=== PATIENT | male | born 1935 | race Caucasian/White ===

== ENCOUNTER 2016-11-26 16:58 | Inpatient (IN) | payer MEDICARE ==
[~2016-11-26] VITALS: Ht 180.3 cm; Wt 81.6 kg
[~2016-11-26 16:58] MED LIST: AUGMENTIN 500-11 TA1 PO; BAYER CHEWABLE81 MG PO; CLINORIL150 MG PO; FLOMAX0.4 MG PO; GLUCOTROL 5 MG T5 MG PO; HYDROCODON-ACE1 EAC7 PO; K-DUR20 MEQ PO; LASIX40 MG PO; LISINOPRIL2.5 MG PO; NEURONTIN 300300 MG PO; NEURONTIN600 MG PO; PROSCAR5 MG PO; ZYLOPRIM300 MG PO
[2016-11-26 18:45] LABS: APPEARANCE HAZY (CLEAR); BILIRUBIN NEGATIVE (NEGATIVE); COLOR YELLOW (YELLOW); GLUCOSE NEGATIVE (NEGATIVE); KETONE SMALL mg/dL (NEGATIVE); LEUKOCYTE ESTERASE 1+ (NEGATIVE); NITRITE NEGATIVE (NEGATIVE); PROTEIN 2+ mg/dL (NEGATIVE); SPECIFIC GRAVITY 1.015 (1.005-1.020); UROBILINOGEN NORMAL (NORMAL)
[2016-11-26 18:46] LABS: BACTERIA MANY /hpf (NONE SEEN); EPITHELIAL CELLS 0-5 /hpf (0-5); RED CELLS - URINE 0-5 /hpf (0-5); WHITE CELLS - URINE 25-50 /hpf (0-5)
[2016-11-26 19:23] LABS: BASOPHILS 0.1 % (0-2); EOSINOPHILS 0 % (0-7); HEMATOCRIT 39.6 % (42.0-54.0); HEMOGLOBIN 13.5 g/dL (13.5-17.5); IMMATURE GRANULOCYTES 0.2 % (0-5); LYMPHOCYTES 7.4 % (15-50); MCH 31.5 pg (26.0-34.0); MCHC 34.1 g/dL (31.0-37.0); MCV 92.5 fL (80.0-100.0); MEAN PLATELET VOLUME 10.4 fL (7.4-10.4); MONOCYTES 6.8 % (2-11); NEUTROPHILS 85.5 % (40-80); PLATELET COUNT 260 10x3/uL (130-400); RBC 4.28 10x6/uL (4.20-6.10); RDW 13.5 % (11.5-14.5); WBC 13.6 10x3/uL (4.8-10.8)
[2016-11-26 19:50] LABS: ALBUMIN 2.8 g/dL (3.4-5.0); ALKALINE PHOSPHATASE 109 U/L (46-116); ALT (SGPT) 25 U/L (10-68); BILIRUBIN - TOTAL 1.25 mg/dL (0.2-1.3); CALC OSMOLALITY 284 mosm/kg (275-300); CALCIUM 8.3 mg/dL (8.5-10.1); CARBON DIOXIDE 24.5 mmol/L (21.0-32.0); CHLORIDE - SERUM 108 mmol/L (98-107); CREATININE - SERUM 1.4 mg/dL (0.6-1.3); POTASSIUM - SERUM 4.1 mmol/L (3.5-5.1); SODIUM 140 mmol/L (136-145); UREA NITROGEN 24 mg/dL (7-18); eGFR NON AFRICAN AMERICAN 51 mL/min (90-120)
[2016-11-26 19:54] LABS: GLUCOSE 132 mg/dL (74-106)
[2016-11-26 20:00] VITALS: BP 132/79
[2016-11-26 20:07] LABS: CREATINE KINASE 715 UL (21-232)
[2016-11-26 20:17] LABS: CKMB 8.8 U/L (0.0-3.6)
[2016-11-26 23:07] VITALS: BP 132/79; BMI 25.1
--- NOTE | 2016-11-26 23:19 | NUR ---
PT ARRIVED ON UNIT AT 2142 VIA STRETCHER ESCORTED BY ER STAFF. POSITIONED IN BED FOR COMFORT. PT C/O SCOOTED AROUND ON GARAGE FLOOR FOR 24 HOURS AFTER FALL. PT HAS STAGE 2 DECUBITIS ULCER ON COCCYX, BRIGHT RED WITH SOME BLEEDING. APPLIED MAXIMINO'S PASTE ON COCCYX AND COVERED WITH A MEPILEX HEART UNTIL HE CAN BE SEEN BY WOUND CARE NURSE...CONSULT PLACED IN COMPUTER. IV IN LEFT AC WITH NS INFUSING AT 100 ML / HR. GAVE MORPHINE 2 MG IVP PER PT REQUEST FOR PAIN ON BOTTOM. ADMISSION ASSESSMENT AND HISTORY COMPLETE. MED REC COMPLETE. WILL MONITOR CLOSELY FOR NEEDS. BED ALARM IN USE AND PT INSTRUCTED TO ASK FOR ASSISTANCE BEFORE EXITING BED.
[2016-11-27] VITALS: BP 139/55
--- NOTE | 2016-11-27 00:42 | NUR ---
ASSISTED PT UP TO GO TO RESTROOM. GRIPPER SOCKS APPLIED TO BLE. PT VERY WEAK AND REQUIRES ASSISTANCE IN BALANING.
[2016-11-27 04:00] VITALS: BP 134/78
[2016-11-27 06:04] LABS: CALC OSMOLALITY 294 mosm/kg (275-300); CALCIUM 8.6 mg/dL (8.5-10.1); CARBON DIOXIDE 25.5 mmol/L (21.0-32.0); CHLORIDE - SERUM 111 mmol/L (98-107); CREATINE KINASE 733 UL (21-232); CREATININE - SERUM 1.4 mg/dL (0.6-1.3); GLUCOSE 146 mg/dL (74-106); SODIUM 144 mmol/L (136-145); UREA NITROGEN 26 mg/dL (7-18); eGFR NON AFRICAN AMERICAN 51 mL/min (90-120)
[2016-11-27 06:07] LABS: CKMB 7.9 U/L (0.0-3.6)
--- NOTE | 2016-11-27 06:41 | NUR ---
PT RESTED WELL OVERNIGHT. HE REQUIRES ASSISTANCE GOING TO RESTROOM, HE IS VERY WEAK AND UNSTEADY ON HIS FEET. BED ALARM IN USE FOR SAFETY.
[2016-11-27 08:05] VITALS: BP 138/83
--- NOTE | 2016-11-27 08:26 | NUR ---
PT SITTING ON SIDE OF BED EATING BREAKFAST. SOME SOB NOTED. ON O2 AT 2L VIA NASAL CANULA. RHONCHI NOTED ON RIGHT MIDDLE LOBE. LEFT FOREARM PERIPHERAL IV INFUSING NS AT 10ML/HR. PT DENIES OTHER NEEDS AT THIS TIME.
--- NOTE | 2016-11-27 12:05 | NUR ---
Patient Name: RAMANDEEP STROUD Admission Status: ER Accout number: [id number] Admission Date: 11-26-2016 : 1934 Admission Diagnosis: Attending: ALVIN CORDERO Current LOS: 1 Anticipated DC Date: 11-30-2016 Planned Disposition: Home Primary Insurance: [employer] ADV Discharge Planning Comments: CM MET WITH PATIENT REGARDING D/C NEEDS AND PLANS. PATIENT STATED HE LIVES ALONE AND HIS DAUGHTER WILL DRIVE HIM HOME AT DISCHARGE. PATIENT HAS 4 STEPS W/RAILS TO ENTER HOME AND NO STAIRS INSIDE. PATIENT STATED HE IS INDEPENDENT WITH HIS CARE AND HAS A WALKER, WHEELCHAIR, SHOWER CHAIR (BUILT IN), CANE, AND GLUCOMETER (DOES NOT CHECK.) PATIENT SEES AN LIVESTOCK AGENT FROM [place] AT [place] WEEKLY IN HIS HOME. PATIENT STATED HE USES [facility] [address] FOR HIS PHARMACY. CM HAS CALLED PATIENTS DAUGHTER (HAYLEY) REGARDING D/C NEEDS AND PLANS. PCP SEES LIVESTOCK AGENT FROM [place] (DOES NOT KNOW NAME) [facility] [address] [phone] HAYLEY (DAUGHTER) [phone] [place] Operator: Sheila Shin Is the patient Alert and Oriented? Yes 0 * How many steps to enter\exit or inside your home? 4 RAILS 0 * PCP [facility] COMES TO HOME ONCE A WEEK 0 * Pharmacy [facility] [address] 0 * Preadmission Environment Home Alone 0 * ADLs Independent 0 * Equipment Cane Glucometer Walker Wheelchair 0 * List name and contact numbers for known caregivers / representatives who currently or will assist patient after discharge: HAYLEY (DAUGHTER) [phone] * Community resources currently utilized [place] [facility] 0 * Please name any agencies selected above. [facility]IVE[facility]OCK AGENT COMES IN HIS HOME ONCE A WEEK 0 * Additional services required to return to the preadmission environment? Yes 0 * Can the patient safely return to the preadmission environment? Yes 0 * Has this patient been hospitalized within the prior 30 days at any hospital? No 0 Grand Total: 0
[2016-11-27 12:28] VITALS: BP 118/46
--- NOTE | 2016-11-27 12:30 | NUR ---
PATIENT'S HEART RATE IS BRADYCARDIC AT 40. PT DOES NOT APPEAR SYMPTOMATIC. WOKE HIM UP TO SEE IF HE WAS NOT FEELING WELL. STATED THAT HE FEELS FINE. WILL CONTINUE TO MONITOR.
[2016-11-27 13:46] VITALS: Ht 180.3 cm; Wt 81.6 kg
--- NOTE | 2016-11-27 14:57 | NUR ---
AMBULATED PT TO BATHROOM. VERY UNSTEADY GAIT. UNABLE TO PROVIDE A URINE SAMPLE AT THIS TIME. WILL TRY AGAIN LATER. ASSISTED PT BACK IN BED. PULLED UP IN BED AND REPOSITONED X 2 ASSIST. BED ALARM TURNED ON. BED LOW POSITION. CALL LIGHT IN REACH. PT DENIES OTHER NEEDS AT THIS TIME.
[2016-11-27 16:00] VITALS: BP 156/86
--- NOTE | 2016-11-27 16:28 | NUR ---
PT NEEDED ASSISTANCE TO BATHROOM. REFUSED FOR WOMEN NURSES OR BLOCKLAYER TO HELP HIM. HE WANTED A MALE TO PROVIDE HIM HELP. EXPLAINED TO PT THAT THERE WHERE NO MEN AVAILABLE TO HELP HIM AT THIS TIME. PT STILL INSISTED TO GO TO BATHROOM BY HIMSELF WITHOUT HELP OF NURSE OR BLOCKLAYER. HAD PT SIGN FORM OF RESPONSIBILITY DUE TO HIS UNSTEADY GAIT.
--- NOTE | 2016-11-27 18:40 | NUR ---
PT OUTSIDE OF ROOM. HE WANTED TO SEE HIS DOCTOR BECAUSE HE WANT TO GO HOME. ASSISTED HIM BACK IN ROOM. EXPLAINED TO HIM THAT HIS DOCTOR WILL SEE HIM IN THE MORNING. ENCOURAGED HIM TO STAY IN BED TO PREVENT HIM FROM FALLING. HIS GAIT IS VERY UNSTEADY.
--- NOTE | 2016-11-27 19:30 | NUR ---
PATIENT RESTING IN BED AND DENIES NEEDS AT THIS TIME. BED IN LOWEST POSITION AND CALL LIGHT WITHIN REACH. ENCOURAGED THE PATIENT TO CALL IF HE HAS NEEDS.
[2016-11-27 20:00] VITALS: BP 134/50
--- NOTE | 2016-11-27 22:33 | NUR ---
PAGED DR. CORDERO IN REGARDS TO PATIENT'S INCREASING AGITATION AND COMBATIVE BEHAVIOR.
[2016-11-28] VITALS: BP 101/56
--- NOTE | 2016-11-28 01:10 | NUR ---
PATIENT IS SITTING ON THE SIDE OF THE BED AND REFUSING TO GET BACK INTO BED. I ALSO OFFERED THE PATIENT THE OPTION OF SITTING IN THE RECLINER. I HAVE EXPLAINED TO THE PATIENT THAT SITTING ON THE SIDE OF THE BED IS UNSAFE AND IT INCREASES HIS RISK OF FALLING. I HAVE TRIED TO TALK TO THE PATIENT ABOUT GETTING BACK IN THE BED OR SITTING IN THE CHAIR. HE CONTINUES TO REFUSE BOTH OPTIONS AND INSISTS ON SITTING ON THE SIDE OF THE BED.
--- NOTE | 2016-11-28 03:30 | NUR ---
PATIENT IS STILL UNCOOPERATIVE AT THIS TIME AND REFUSED TO HAVE BLOOD DRAWN
[2016-11-28 04:09] VITALS: BP 119/59
--- NOTE | 2016-11-28 07:30 | NUR ---
REPORT RECEIVED FROM KNEE BOLTER NURSE. WALKING ROUNDS PREFORMED. ASSESSMENT COMPLETED, SEE FLOW SHEET. PT SITTING UP IN BED. BED ALARM IN PLACE AND ARMED. CALL LIGHT AT SIDE. PT EXPRESSESS DESIRE TO GO HOME. PER REPORTS PT UP MULTIPLE TIMES THROUGHOUT NIGHT. NO OTHER NEEDS VOICED AT THIS TIME. IV INFUSING TO LEFT AC.
[2016-11-28 08:10] VITALS: BP 119/62
--- NOTE | 2016-11-28 09:00 | NUR ---
PT UNABLE TO URINATE. BLADDER RIDGID AND PALIPABLE. IN AND OUT HERNANDEZ USING INDOOR SPORTS CENTRE MANAGER DONE WITH RETURN OF 800ML. BLADDER REMAINS RIDGED, ORDER OBTAINED FOR INDWELLING HERNANDEZ. 16 KHMER HERNANDEZ INSERTED USING INDOOR SPORTS CENTRE MANAGER. URINED CLEAR YELLOW. PT HAD REPORTED COULD NOT URINATE WITH FEMALES IN ROOM ON POULTRY KILLER. PT UNABLE TO URINATE WITH MALE NURSE PRESENT ON POULTRY KILLER EITHER. DURING INSERTION OF IN AND OUT CATH PT REPORTED THAT HE CATHS AT HOME AND THAT "THEY" SEND HIM ABOUT 50/MONTH.
--- NOTE | 2016-11-28 09:50 | CN ---
PATIENT NAME:RAMANDEEP STROUD MEDICAL RECORD: [id number] : 34 LOCATION:[id number] ADMIT DATE: 11/26/16 ACCOUNT: [id number] CONSULTING PHYSICIAN: DIEGO WYNN MD REFERRING PHYSICIAN: ALVIN CORDERO DO DATE OF CONSULTATION: 11/27/2016 Psychiatric Consultation IDENTIFYING DATA: The patient is 81 years old and he is admitted to the hospital on a voluntary basis. CHIEF COMPLAINT: None. HISTORY OF PRESENT ILLNESS: The patient apparently fell and then laid in his garage for about a day before he was discovered. He was brought to the hospital because of weakness and an elevated CPK associated with the fall. Unfortunately, the patient has a number of very serious medical problems including COPD, diabetes, cardiac arrhythmia and lung cancer. He has been undergoing treatment for the lung cancer and is hopeful that he is going to be found in remission. He has not told his daughter about the lung cancer and does not want her to know. He denies neurovegetative depressive symptoms. He denies thoughts of harming himself or others. He denies substance abuse. He denies a past history of psychiatric treatment and apparently functioned well socially and occupationally. He is somewhat isolated as his of many years is . MENTAL STATUS EXAMINATION: The patient is awake, alert and oriented to person, place, time and situation. He was mildly mistaken about the date thinking it is still October instead of November 27. He is displaying a mood that is depressed and affect that is generally appropriate. His thought processes are goal directed. Memory, concentration and abstraction abilities are moderately impaired and he denies any active intent to harm himself or others as well as overt psychotic symptoms. ASSESSMENT: Rule out dementia. PLAN: At this time, the patient is not showing evidence of acute or direct dangerousness. I am not entirely certain what is being asked of me. The consult request indicated evaluate for mental fitness. In general, I would say the patient is competent. He has an ability to understand his circumstances and to make a reasonable informed consent decisions. Whether or not he is making the best decision or decision that most people would make is not the same issue. He does not want his daughter to know about his cancer. He says it would just upset her. He is not an alcoholic. He is not suicidal. He is in touch with reality. It may not be best for him to live alone, but he wants to do that. Given his current physical state, he may be appropriate for and willing to conceit to stay in the retirement for rehabilitative purposes. It certainly would not hurt him to take a low dose of an SSRI although I did not approach the subject with him today. He certainly does not need inpatient psychiatric care. Thank you for allowing me to participate in the care of this patient. TRANSINT:[id number] Voice Confirmation ID: [id number] DOCUMENT ID: [id number] CONSULT REPORT [id number] RAMANDEEP STROUD, DIEGO SHEARER at 0950 CC: [id number] DICTATION DATE: 11/27/16 1343 WINDSURFING INSTRUCTOR: 11/27/16 1407 ADM IN [place] [id number] [place] [address]
[2016-11-28 09:58] LABS: APPEARANCE CLEAR (CLEAR); BILIRUBIN NEGATIVE (NEGATIVE); COLOR YELLOW (YELLOW); GLUCOSE NEGATIVE (NEGATIVE); KETONE NEGATIVE (NEGATIVE); LEUKOCYTE ESTERASE NEGATIVE (NEGATIVE); NITRITE NEGATIVE (NEGATIVE); PROTEIN TRACE mg/dL (NEGATIVE); SPECIFIC GRAVITY 1.015 (1.005-1.020); UROBILINOGEN NORMAL (NORMAL)
--- NOTE | 2016-11-28 10:10 | NUR ---
PT SITTING IN BED WITH NO VISABLE SIGNS OF PAIN OR DISCOMFORT AT THIS TIME. BED IN LOW POSITION AND CALL LIGHT WITHIN REACH. WILL CONTINUE TO MONITOR.
--- NOTE | 2016-11-28 11:00 | NUR ---
PT RESTING QUIETLY WITH EYES CLOSED. RESP EVEN AND UNLABORED. CALL LIGHT AT SIDE. BED ALARM ARMED. IV INFUSING TO LEFT AC. HERNANDEZ DRAINING CLEAR YELLOW URINE.
[2016-11-28 12:40] VITALS: BP 122/65
--- NOTE | 2016-11-28 13:00 | NUR ---
SITTING IN BED WATCHING TV. WANTS TO KNOW WHEN HE CAN GO HOME, OTHERWISE REPORTS NO NEEDS. DISCUSSED WITH PT NEW ORDER FOR PHYSICAL THEREPY EVAL. IN INFUSING. BED ALARM ARMED.
--- NOTE | 2016-11-28 14:07 | NUR ---
REHAB PRESCREEN: MR STROUD WOULD BE A GOOD CANIDIATE FOR THE REHAB TO HELP WITH STRENGTHING, HE WILL NEED A OT CONSULT TO FINISH THE EVAL. THE PT DOES HAVE [employer] INSURANCE AND WILL NEED PRIOR APPROVAL BEFORE ABLE TO TRANSFER, WITH IT BEING A HOLIDAY WEEKEND IT MAY BE WEDNESDAY BEFORE ABLE TO AQUIRE IT. WILL TALK WITH NEO, AND FOLLW UP ON WEDNESDAY. THANK YOU FOR THIS EVAL. MADELIN RICHEY CLINICAL LIAISON
--- NOTE | 2016-11-28 14:52 | NUR ---
PT RESTING WITH EYES CLOSED. RESP EVEN AND UNLABORED. CALL LIGHT AT SIDE. BERD ALARM ARMED.
[2016-11-28 15:57] VITALS: BP 103/43
--- NOTE | 2016-11-28 19:30 | NUR ---
PATIENT RESTING IN BED AND DENIES NEEDS AT THIS TIME. PATIENT VERBALIZES UNDERSTANDING THAT HE WILL NOT BE DISCHARGED TODAY AND HE WILL BE STAYING IN THE HOSPITAL TONIGHT. BED IN LOWEST POSITION, CALL LIGHT WITHIN REACH, AND BED ALARM ON. ENCOURAGED THE PATIENT TO CALL IF HE HAS NEEDS.
[2016-11-28 20:00] VITALS: BP 150/66
--- NOTE | 2016-11-28 21:30 | NUR ---
PATIENT IS AGITATED THAT HE IS STAYING IN THE HOSPITAL TONIGHT AND STATED THAT HE WANTS TO LEAVE. I EXPLAINED TO THE PATIENT THAT HE WILL NOT BE DISCHARGED TONIGHT. PATIENT VERBALIZED UNDERSTANDING. PATIENT DENIES OTHER NEEDS AT THIS TIME. BED IN LOWEST POSITION, CALL LIGHT WITHIN REACH, AND BED ALARM ON. ENCOURAGED THE PATIENT TO CALL IF HE HAS NEEDS.
--- NOTE | 2016-11-29 03:55 | NUR ---
PAGED DR. CORDERO IN REGARDS TO PATIENT BECOMING INCREASINGLY COMBATIVE AND DISRUPTIVE. PATIENT REFUSED AM VITALS. PATIENT'S BED IS IN THE LOWEST POSITION, CALL LIGHT WITHIN REACH, AND BED ALARM ON. ENCOURAGED THE PATIENT TO CALL IF HE HAS NEEDS.
--- NOTE | 2016-11-29 07:00 | NUR ---
PT REC'D FROM [facility]. RESTING IN BED WITH EYES CLOSED. NO SIGNS OF DISTRESS. RESP EVEN AND UNLABORED. BED LOW, CALL LIGHT IN REACH, CPOC.
[2016-11-29 08:20] VITALS: BP 104/54
--- NOTE | 2016-11-29 08:50 | NUR ---
MORNING MEDS PASSED AT THIS TIME. PRN PAIN MEDICATION ADMINISTERED PER PT COMPLAINTS OF 7/10 BUTTOCK PAIN. DRESSING OVER PRESSURE ULCER CDI. WILL REASSESS. REGULAR HEART RATE AND RHYTHM. LUNG SOUNDS CLEAR AND EQUAL BILAT. BOWEL SOUNDS ACTIVE X4 QUADS. HERNANDEZ CAHTETER IN PLACE DRAINING CLEAR YELLOW URINE TO GRAVITY. DRESSING TO R ARM CDI WELL. SCABS/SORES NOTED TO LLE. PIV TO L AC FREE OF REDNESS AND SWELLING. BED LOW, CALL LIGHT IN REACH, DENIES NEEDS. CPOC.
--- NOTE | 2016-11-29 09:15 | NUR ---
PATIENT IN HIGH MUNOZ POSITION RESTING WITH EYES CLOSED. RESPIRATIONS EVEN AND UNLABORED. SIDE RAILS UP X3. BED IN LOW POSITION. CALL LIGHT IN REACH. BED ALARM ON.
--- NOTE | 2016-11-29 12:00 | NUR ---
PT ATTEMPTING TO GET OOB. ATTEMPTED TO REDIRECT PT, BUT WAS UNSUCCESSFUL. ASSISTED PT BACK TO BED X2 ASSISTANCE FROM STAFF. PT PUNCH, GRABBING, AND SPITTING AT STAFF. DR. GIL CHAUDHARY.
[2016-11-29 12:43] VITALS: BP 131/69
[2016-11-29 15:44] VITALS: BP 108/52
--- NOTE | 2016-11-29 19:42 | NUR ---
LATE ENTRY 1000 PATIENT WITH REHAB EVAL PENDING. NEEDS OT CONSULT TO COMPLETE EVAL. NO OT SERVICES UNTIL 12/01/16. PATIENT ALSO WITH MEDICARE REPLACEMENT PROVIDER. WILL NEED PREAUTH THRU INSURER. WILL NEED TO CONTACT [employer] ON 12/01/16 TO INITIATE AUTH. DISCUSSED WITH DR CORDERO THIS AM.
[2016-11-29 20:00] VITALS: BP 112/64
--- NOTE | 2016-11-29 20:00 | NUR ---
PATIENT RESTING IN BED WITH EYES CLOSED AND NO VISIBLE SIGNS OF DISTRESS. BED IN LOWEST POSITION, CALL LIGHT WITHIN REACH, AND BED ALARM ON.
[2016-11-30] VITALS (7 sets, daily range): BP systolic 110–143; BP diastolic 53–70
--- NOTE | 2016-11-30 01:30 | NUR ---
PATIENT IS BECOMING INCREASINGLY AGITATED AND COMBATIVE
[2016-11-30 04:14] LABS: BASOPHILS 0.1 % (0-2); EOSINOPHILS 0.9 % (0-7); HEMATOCRIT 37.4 % (42.0-54.0); HEMOGLOBIN 12.6 g/dL (13.5-17.5); IMMATURE GRANULOCYTES 0.3 % (0-5); LYMPHOCYTES 10.1 % (15-50); MCH 31.3 pg (26.0-34.0); MCHC 33.7 g/dL (31.0-37.0); MONOCYTES 7.1 % (2-11); NEUTROPHILS 81.5 % (40-80); PLATELET COUNT 230 10x3/uL (130-400); RBC 4.02 10x6/uL (4.20-6.10); RDW 13.9 % (11.5-14.5); WBC 11.1 10x3/uL (4.8-10.8)
--- NOTE | 2016-11-30 04:24 | NUR ---
PATIENT RESTING WITH EYES CLOSED AND NO VISIBLE SIGNS OF DISTRESS. BED IN LOWEST POSITION, CALL LIGHT WITHIN REACH, AND BED ALARM ON.
[2016-11-30 04:32] LABS: ALBUMIN 2.5 g/dL (3.4-5.0); ALKALINE PHOSPHATASE 97 U/L (46-116); ALT (SGPT) 27 U/L (10-68); BILIRUBIN - TOTAL 1.13 mg/dL (0.2-1.3); CALC OSMOLALITY 288 mosm/kg (275-300); CALCIUM 8.4 mg/dL (8.5-10.1); CARBON DIOXIDE 27.4 mmol/L (21.0-32.0); CHLORIDE - SERUM 109 mmol/L (98-107); CKMB 4.5 U/L (0.0-3.6); CREATINE KINASE 709 UL (21-232); CREATININE - SERUM 1.3 mg/dL (0.6-1.3); GLUCOSE 123 mg/dL (74-106); POTASSIUM - SERUM 3.5 mmol/L (3.5-5.1); PROTEIN - SERUM 6.5 g/dL (6.4-8.2); SODIUM 143 mmol/L (136-145); UREA NITROGEN 22 mg/dL (7-18); eGFR NON AFRICAN AMERICAN 56 mL/min (90-120)
--- NOTE | 2016-11-30 08:03 | NUR ---
PT WOKEN AT THIS TIME. PLEASANT AND COOPERATIVE WITH STAFF. SCHEDULED MEDICATIONS ADMINISTERED AT THIS TIME AND PT POSITIONED UPRIGHT IN BED SO THAT HE CAN EAT HIS BREAKFAST. DENIES PAIN. BED AND WILIAM ALARM ON. CALL LIGHT IN REACH, DOOR OPEN. WILL CONTINUE WITH PLAN OF CARE.
--- NOTE | 2016-11-30 12:00 | NUR ---
BED BATH GIVEN AT THIS TIME FOR INCONTINENT EPISODE OF STOOL AT THIS TIME. PT COOPERATED AND DID NOT DISPLAY SIGNS OF AGGRESSION DURING THIS TIME. MAXIMINO'S APPLIED TO BOTTOM AND PT PULLED UPRIGHT IN BED WITH HEELS BRIDGED. BED ALARM ON. DENIES FURTHER NEEDS. CALL LIGHT IN REACH, WILL CONTINUE WITH PLAN OF CARE.
--- NOTE | 2016-11-30 15:40 | NUR ---
SLEEPING AT THIS TIME WITH RESPIRATIONS EVEN AND NON LABORED. BED ALARM REMAINS ON AND CALL LIGHT IN REACH. HERNANDEZ CATHETER PATENT AND DRAINING TO GRAVITY. DOOR OPEN. WILL CONTINUE WITH PLAN OF CARE.
--- NOTE | 2016-11-30 19:56 | NUR ---
PT LYING IN BED, TV ON, PT EYES ARE CLOSED, RESPONDS TO VOICE, DENIES PAIN AT THIS TIME, ASSISTED PT IN GETTING LEGS BACK IN BED AND STRAIGHTENED OUT. NO SIGNS OF DISTRESS WILL CONTINUE WITH CARE PLAN
--- NOTE | 2016-11-30 23:40 | NUR ---
PT LYING IN BED, EYES CLOSED, EVEN RISE AND FALL OF CHEST, NO SIGNS OF DISTRESS WILL CONTINUE TO MONITOR
[2016-12-01 04:00] VITALS: BP 113/62
--- NOTE | 2016-12-01 07:08 | NUR ---
SLEEPING AT THIS TIME WITH RESPIRATIONS EVEN AND NON LABORED. BED ALARM TURNED ON AT THIS TIME. SRX2 WITH BED IN LOWEST POSITION AND WHEELS LOCKED. CALL LIGHT IN REACH AND DOOR OPEN. WILL CONTINUE WITH PLAN OF CARE.
[2016-12-01 08:18] VITALS: BP 143/56
--- NOTE | 2016-12-01 09:52 | NUR ---
CM CALLED (JUSTINA) TO MAKE SURE OT WILL SEE PATIENT TODAY. STATED OT DOES NOT COME IN ON WEEKENDS BUT WILL SEE THE PATIENT TODAY.
--- NOTE | 2016-12-01 10:17 | NUR ---
Rehab Note- Spoke with Nithya with [facility], PreAuth process started. Will fax clinicals when OT eval is avaliable. Pending PreAuth #[id number]. Thank you for this referral! Serenity Mcnair RN Clinical Liaison, [facility] Rehab
[2016-12-01 12:44] VITALS: BP 110/51
--- NOTE | 2016-12-01 13:59 | NUR ---
NUTRITION F/U PT TOLERATING AHA DIET. 75% INTAKE LUNCH. WILL CONTINUE TO PROVIDE DIET, MONITOR INTAKE. RD FOLLOWING
--- NOTE | 2016-12-01 14:00 | NUR ---
BACK IN BED PER THERAPY AT THIS TIME. BED ALARM ON AND CALL LIGHT IN REACH. DOOR OPEN. WILL CONTINUE WITH PLAN OF CARE.
--- NOTE | 2016-12-01 14:30 | NUR ---
Rehab Note- Faxed clinicals to [phone]. Will await review for PreAuth for an acute rehab stay from [employer]. Will follow at this time. Thank you for this referral! Serenity Mcnair RN Clinical Liaison, [facility] Rehab
[2016-12-01 16:28] VITALS: BP 122/64
--- NOTE | 2016-12-01 16:48 | NUR ---
IV TO RIGHT FOREARM 22G X1 ATTEMPT. CONNECTED TO PRESCRIBED IV FLUIDS.
--- NOTE | 2016-12-01 17:03 | NUR ---
OT NOTE: PT COMPLETED SIMPLE GROOMING AND HYGIENE TASKS WITH MIN A. PT COMPLETED BUE AROM EXS FOR INCREASED AX TOLERANCE WITH ADLS. THANK YOU, ROSALINDA ODONNELL/Gianna
[2016-12-01 20:00] VITALS: BP 88/48
--- NOTE | 2016-12-02 02:00 | NUR ---
PATIENT RESTING WITH EYES CLOSED AND NO VISIBLE SIGNS OF DISTRESS. BED IN LOWEST POSITION AND CALL LIGHT WITHIN REACH
[2016-12-02 04:00] VITALS: BP 92/52
--- NOTE | 2016-12-02 07:35 | NUR ---
SLEEPING, NO DISTRESS NOTED, CALL LIGHT IN REACH, BED LOWEST POSITION, WILL CONTINUE TO MONITOR
[2016-12-02 07:39] LABS: BASOPHILS 0.3 % (0-2); EOSINOPHILS 3.5 % (0-7); HEMATOCRIT 37.2 % (42.0-54.0); HEMOGLOBIN 12.6 g/dL (13.5-17.5); IMMATURE GRANULOCYTES 0.3 % (0-5); MCH 31.5 pg (26.0-34.0); MCHC 33.9 g/dL (31.0-37.0); MONOCYTES 8.8 % (2-11); NEUTROPHILS 75.1 % (40-80); PLATELET COUNT 229 10x3/uL (130-400); RDW 13.9 % (11.5-14.5); WBC 7.7 10x3/uL (4.8-10.8)
[2016-12-02 08:16] LABS: ALBUMIN 2.2 g/dL (3.4-5.0); ALKALINE PHOSPHATASE 90 U/L (46-116); ALT (SGPT) 21 U/L (10-68); BILIRUBIN - TOTAL 1.12 mg/dL (0.2-1.3); CALC OSMOLALITY 288 mosm/kg (275-300); CALCIUM 7.9 mg/dL (8.5-10.1); CARBON DIOXIDE 25.8 mmol/L (21.0-32.0); CHLORIDE - SERUM 109 mmol/L (98-107); CREATINE KINASE 237 UL (21-232); CREATININE - SERUM 1.2 mg/dL (0.6-1.3); GLUCOSE 108 mg/dL (74-106); POTASSIUM - SERUM 3.6 mmol/L (3.5-5.1); PROTEIN - SERUM 6.1 g/dL (6.4-8.2); SODIUM 143 mmol/L (136-145); UREA NITROGEN 21 mg/dL (7-18); eGFR NON AFRICAN AMERICAN 61 mL/min (90-120)
[2016-12-02 08:18] LABS: CKMB 1.5 U/L (0.0-3.6)
[2016-12-02 08:19] VITALS: BP 108/63
--- NOTE | 2016-12-02 11:02 | NUR ---
Rehab Note- Spoke with Pepper Vasquez with [employer], phone # [phone], stated received the patient's clinical information yesterday and that information has been sent to their doctors, when asked if there was an approximate time of when we could find out an approval or denial, stated "I cannot predict the doctors". Will continue to follow at this time. Thank you for this referral! Serenity Mcnair RN Clinical Liaison, [facility] Rehab
[2016-12-02 12:00] VITALS: BP 117/50
--- NOTE | 2016-12-02 14:45 | NUR ---
Rehab Note- [facility] that the patient has been approved for an inpatient acute rehab stay. Spoke with ANDERSON Sosa to inform her of approval. Thank you for this referral! Serenity Mcnair RN Clinical Liaison, [facility] Rehab
--- NOTE | 2016-12-02 14:48 | NUR ---
PATIENT HAS BEEN ACCEPTED TO IP REHAB TODAY AND DR. CORDERO HAS BEEN NOTIFIED.
[2016-12-02] MEDS ORDERED: ARICEPT5 MG PO (14:52)
[2016-12-02 16:17] VITALS: BP 139/51
--- NOTE | 2016-12-02 16:25 | NUR ---
Wound care consult: Pt has had pressure injuries in the past as evidenced by scarring on the sacrum and bilateral buttocks. At present, no open wounds are noted. Covered his bottom with a mepilex sacral dressing to protect the at risk skin. He will require assistance turning/repositioning q2h while in bed.
--- NOTE | 2016-12-02 17:15 | NUR ---
PT HERE FOR WEAKNESS AND A FALL BEFORE ARRIVAL AT HOME. IV TO RIGHT FOREARM PATENT AND INTACT AT THIS TIME SRX2 BED AT THIS TIME SRX2 BED AT LOWEST SETTING CALL LIGHT WITHIN REACH WILL CONTINUE TO MONITOR
--- NOTE | 2016-12-02 17:54 | NUR ---
OT NOTE: PT COMPLETED ORAL HYGIENE WITH SET UP. PT COMPLETED BED WITH MIN/MOD A. PT COMPLETED BUE AROM EXS FOR INCREASED AX TOLERANCE. THANK YOU, ROSALINDA ODONNELL/Gianna
--- NOTE | 2016-12-03 15:08 | NUR ---
LATE ENTRY CM SPOKE WITH DR. CORDERO REGARDING PEER TO PEER AND HE STATED THEY APPROVED PATIENT FOR OBSERVATION.
== END 2016-12-02 21:00 | DRG 565 ==
LOC: D.ER 16:58 → D.MS 20:37 → D.SDCHOLD 11-28 18:44 → D.MS 11-28 18:51
PROVIDERS: Emergency Medicine; ADMIT Family Medicine
DX: T79.6XXA Traumatic ischemia of muscle, initial encounter (principal); F05 Delirium due to known physiological condition; W19.XXXA Unspecified fall, initial encounter; E86.0 Dehydration; I10 Essential (primary) hypertension; E11.9 Type 2 diabetes mellitus without complications

== ENCOUNTER 2016-12-02 21:15 | Inpatient (IN) | payer MEDICARE ==
[~2016-12-02] VITALS: Ht 180.3 cm; Wt 83.9 kg
[~2016-12-02 21:15] MED LIST changes: +ARICEPT5 MG PO
--- NOTE | 2016-12-02 21:18 | NUR ---
PT ARRIVED ON YOU UNIT VIA BED ACCOMPANIED BY MYESHA MOTA AND LEONEL FROM [facility].
--- NOTE | 2016-12-02 21:22 | NUR ---
RECEIVED REPORT FROM MYESHA MOTA.
[2016-12-02 21:25] VITALS: BP 131/51
--- NOTE | 2016-12-02 21:25 | NUR ---
PT IN BED WITH HOB UP FOR COMOFRT. ORIENTED PT TO UNIT. WILIAM ALARM SET. BED IN LOWEST POSITION AND CALL LIGHT WITHIN REACH.
--- NOTE | 2016-12-02 23:50 | NUR ---
SHERINE GIL TO DO ASSESSMENT.
[2016-12-03] VITALS: BMI 25.8
--- NOTE | 2016-12-03 00:40 | NUR ---
ADMISSION ASSESSMENT COMPLETE. NO COMPLAINTS AT THIS TIME.
--- NOTE | 2016-12-03 04:30 | NUR ---
PT LYING IN BED. EYES CLOSED. RESP. EVEN. BED IN LOWEST POSITION AND CALL LIGHT WITHIN REACH.
[2016-12-03 06:02] LABS: BASOPHILS 0.2 % (0-2); EOSINOPHILS 3.5 % (0-7); HEMATOCRIT 36.4 % (42.0-54.0); HEMOGLOBIN 12.1 g/dL (13.5-17.5); IMMATURE GRANULOCYTES 0.2 % (0-5); LYMPHOCYTES 14.8 % (15-50); MCH 31.2 pg (26.0-34.0); MCHC 33.2 g/dL (31.0-37.0); MCV 93.8 fL (80.0-100.0); MEAN PLATELET VOLUME 10.2 fL (7.4-10.4); MONOCYTES 12.2 % (2-11); NEUTROPHILS 69.1 % (40-80); PLATELET COUNT 228 10x3/uL (130-400); RBC 3.88 10x6/uL (4.20-6.10); RDW 14.2 % (11.5-14.5); WBC 9.1 10x3/uL (4.8-10.8)
[2016-12-03 06:19] LABS: ANION GAP 9.7 mmol/L (8-16); CALCIUM 7.8 mg/dL (8.5-10.1); CARBON DIOXIDE 28.1 mmol/L (21.0-32.0); CREATININE - SERUM 1.4 mg/dL (0.6-1.3); POTASSIUM - SERUM 3.8 mmol/L (3.5-5.1)
--- NOTE | 2016-12-03 08:08 | NUR ---
EATING BREAKFAST IN ROOM. CALL LIGHT IN REACH. DENIES NEEDS.
[2016-12-03 08:48] VITALS: BP 145/56
--- NOTE | 2016-12-03 09:32 | NUR ---
PRN PAIN MEDICATION GIVEN FOR RIGHT KNEE PAIN PER PATIENT REQUEST.
--- NOTE | 2016-12-03 11:15 | NUR ---
PATIENT REQUESTED TO GET BACK INTO BED AFTER SHOWER WITH OCCUPATIONAL THERAPIST. MAX ASST OF TWO FOR PATIENT TO GET BACK INTO BED. PATIENT ABLE TO BEAR SOME WEIGHT ON LEGS. DID NOT PIVOT.
[2016-12-03 13:41] VITALS: Ht 180.3 cm; Wt 83.9 kg
--- NOTE | 2016-12-03 15:14 | NUR ---
PRN PAIN MEDICATION GIVEN FOR BILATERAL LEG PAIN.
--- NOTE | 2016-12-03 15:45 | RHP ---
PATIENT: RAMANDEEP STROUD MEDICAL RECORD: [id number] ACCOUNT: [id number] LOCATION:[facility]1114 : 34 ADMISSION DATE: 12/02/16 REHABILITATION HISTORY AND PHYSICAL EXAMINATION POST ADMISSION PHYSICIAN EXAMINATION Post-admission Physical Examination and History and Physical DATE OF ADMISSION: 12/02/2016 ADMITTING DIAGNOSIS: Rhabdomyolysis. HISTORY OF PRESENT ILLNESS: The patient is an 81-year-old gentleman admitted with rhabdomyolysis. He was admitted to the hospital on November 26 from the ER with complaints of fall, was lying on his garage floor for over 24 hours. The patient awake, alert and oriented to person, place and time. He is mildly mistaken about the date, but otherwise was within normal limit. He complains of weakness, fatigue, stiffness and multiple abrasions. Chest x-ray showed right basilar airspace disease consistent with atelectasis or pneumonia. Pelvic x-ray was negative for fracture. CT of the head was negative. He had an elevated CPK and ketones on his urine. The patient has a number of serious medical conditions including COPD, diabetes, cardiac arrhythmia and lung cancer. He has been undergoing treatment for lung cancer, is hopefully going to be found in remission. Previously, he was living alone and was markedly independent with ADLs and mobility. He has 4 stairs to enter to his home. He has an BALLET MASTER/MISTRESS from the NH that sees him weekly. Currently, he is [id number] assist for ADLs and mobility. He has an unsteady gait, weakness and fatigue. He has mild confusion at night and becomes disorient. A psych eval suggested owner's. He wants to regain his strength and hopefully get back to his prior level of functioning and return home. COMORBIDITIES: In this patient include pneumonia, diabetes, neuropathy, UTI, dehydration, multiple abrasions, contusions, polyneuropathy, COPD, lung cancer, falls, weakness, fatigue, elevated CPK, gout, retention of urine, irregular heartbeat, cataracts, osteoarthritis. PAST MEDICAL HISTORY: Significant for neuropathy, cataracts, diabetes, irregular heartbeat, COPD and lung cancer. PAST SURGICAL HISTORY: Includes hemorrhoidectomy. ALLERGIES: No known drug allergies. CURRENT MEDICATIONS: Include Neurontin 600 mg q.h.s., Zestril 2.5 mg daily; Neurontin, he takes 300 mg in the morning; also, he takes finasteride 5 mg daily, Aricept 5 mg q.h.s. He is on aspirin chewable 81 mg daily, allopurinol 300 mg daily, [place] as needed for pain, and polyethylene glycol 17 grams in 8 ounces of water daily. HABITS: No current alcohol or tobacco use. FAMILY HISTORY: Noncontributory. SOCIAL HISTORY: The patient hopes to return back home and get back to his prior level of functioning. He lives on his own. HISTORY AND PHYSICAL [id number] RAMANDEEP STROUD REVIEW OF SYSTEMS: GENERAL: Does complain of weakness. HEENT: Denies cold, cough, or congestion. CARDIOVASCULAR: Denies chest pain. PHYSICAL EXAMINATION: VITAL SIGNS: Stable, afebrile. GENERAL: Elderly gentleman, in no acute distress, alert upon exam. HEENT: Normocephalic and atraumatic. Mucosa moist. NECK: Supple. No lymphadenopathy. LUNGS: Clear at this time. HEART: Irregular rate and rhythm. ABDOMEN: Benign. EXTREMITIES: No clubbing, cyanosis or edema. He does have multiple abrasions. NEUROLOGIC: Seems intact. LABORATORY DATA: His white count is 9.1, H&H 12 and 36, and platelet count is 228. Sodium 143, potassium 3.8, BUN and creatinine of 24 and 1.4 and blood sugar is 121. ASSESSMENT: This is an 81-year-old gentleman admitted to the rehab with a working diagnosis of rhabdomyolysis. The patient has potential to make improvement. We instituted the following multidisciplinary therapies including, but not limited to physical, occupational, respiratory, speech, nutritional services, prosthetics and orthotics. Given his complex condition and risk for more complications, rehabilitation services cannot be provided at a lower level of care such as a custodial facility. PLAN: 1. Admit to [facility] rehab for intensive inpatient therapy to include the following disciplines: A. Physical therapy to improve gait, all transfer skills and bed mobility to a modified independent level. B. Occupational therapy to improve activities of daily living to a modified independent level. C. Case management to assist with discharge planning and placement options. D. Nutrition to assist with nutritional needs. E. Rehabilitation nursing to assist in monitoring the patient's underlying medical conditions and to assist with any type of bowel or bladder management. 2. The patient's current medication and medical care will be continued. 3. The patient will be placed on standard fall precautions. 4. The patient's estimated length of stay is approximately 7-10 days. 5. Discuss this patient during care team staff meeting this week. TRANSINT:[id number] Voice Confirmation ID: [id number] DOCUMENT ID: [id number] KAMILA notes whether there has been none or any medical/functional change since admission: - KAMILA attests patient continues to be appropriate for IRF: - HISTORY AND PHYSICAL [id number] RAMANDEEP STROUD SCOTT MD at 1545 CC: [id number] DICTATION DATE: 12/03/16 1024 ADVERTISING SPACE CLERK: 12/03/16 1101 ADM IN [place] [id number] [place] [address]
--- NOTE | 2016-12-03 17:24 | NUR ---
PATIENT SITTING UP IN A WHEELCHAIR TO EAT SUPPER. TALKING ON PHONE.
--- NOTE | 2016-12-03 19:50 | NUR ---
FRIEND VISIT PT.
--- NOTE | 2016-12-03 23:08 | NUR ---
PT SIT UP IN WHEELCHAIR AND TALK TO FRIEND.
[2016-12-04 00:06] VITALS: BP 107/45
--- NOTE | 2016-12-04 01:40 | NUR ---
REST IN BED, EYE CLOSE, CALL LIGHT IN REACH.
[2016-12-04 06:07] LABS: BASOPHILS 0.3 % (0-2); EOSINOPHILS 6.8 % (0-7); HEMATOCRIT 35.1 % (42.0-54.0); HEMOGLOBIN 11.6 g/dL (13.5-17.5); IMMATURE GRANULOCYTES 0.1 % (0-5); MCH 31.3 pg (26.0-34.0); MCV 94.6 fL (80.0-100.0); MEAN PLATELET VOLUME 10.3 fL (7.4-10.4); MONOCYTES 8.6 % (2-11); NEUTROPHILS 67.2 % (40-80); PLATELET COUNT 220 10x3/uL (130-400); RBC 3.71 10x6/uL (4.20-6.10); RDW 14.2 % (11.5-14.5); WBC 7.4 10x3/uL (4.8-10.8)
[2016-12-04 06:19] LABS: ANION GAP 9.1 mmol/L (8-16); CALCIUM 7.9 mg/dL (8.5-10.1); CARBON DIOXIDE 28.7 mmol/L (21.0-32.0); CREATININE - SERUM 1.6 mg/dL (0.6-1.3); POTASSIUM - SERUM 3.8 mmol/L (3.5-5.1)
[2016-12-04 07:40] VITALS: BP 128/39
--- NOTE | 2016-12-04 08:46 | NUR ---
PATIENT ALERT/ORIENT. SITTING UP IN BED TO EAT BREAKFAST. CALL LIGHT WITHIN REACH. VOICES NO NEEDS AT THIS TIME.
--- NOTE | 2016-12-04 09:12 | NUR ---
PRN PAIN MEDICATION GIVEN FOR BILATERAL LEG PAIN/DISC PER PATIENT REQUEST
--- NOTE | 2016-12-04 11:30 | NUR ---
PATIENT IS A MAX ASST OF TWO FROM BED TO WHEELCHAIR. PATIET NEEDS ASST TO GET TO THE SIDE OF THE BED. PATIENT CAN BEAR WEIGHT ON BOTH LEGS. DOES NOT PIVOT WELL.
--- NOTE | 2016-12-04 17:33 | NUR ---
PATIENT SITTING UP IN CHAIR TO EAT SUPPER. PATIENT IS A MAX ASST OF TWO TO GET BACK INTO BED.
--- NOTE | 2016-12-04 20:00 | NUR ---
PT IN BED WITH HOB UP FOR COMFORT. RESTING QUIETLY. PT'S CODE STATUS IS DNR. NO O2. NO IV. BED ALARM ON. HERNANDEZ CATH. BED IN LOWEST POSITION AND CALL LIGHT WITHIN REACH.
[2016-12-04 20:37] VITALS: BP 124/52
--- NOTE | 2016-12-05 00:35 | NUR ---
RESTING IN BED, EYES CLOSED.
--- NOTE | 2016-12-05 01:00 | NUR ---
IN BED, AWAKE. REQUESTED "PAIN PILL". PASSES THIS REQUEST TO HIS PRIMARY NURSE BUT TOLD HIM SHE THOUGHT HE WOULD NOT BE ABLE TO HAVE ANOTHER UNTIL ABOUT 0230.
--- NOTE | 2016-12-05 02:33 | NUR ---
C/O NEUROPATHY PAIN OF LEVEL 8/10 IN RIGHT FOOT. GAVE HIM NORCO X2 TABS PO.
--- NOTE | 2016-12-05 04:38 | NUR ---
PT LYING IN BED WITH HOB UP FOR COMFORT. EYES CLOSED. RESP. EVEN. BED IN LOWEST POSITION AND CALL LIGHT WITHIN REACH.
--- NOTE | 2016-12-05 06:44 | NUR ---
PT STATES HE IS HAVING A 10/10 PAIN IN HIS RIGHT FOOT. PT REQUESTING "PAIN PILL". NORCO 2 TAB'S GIVEN.
--- NOTE | 2016-12-05 07:09 | NUR ---
RESTING QUIETLY IN BED. NO S/S DISTRESS. CALL LIGHT IN REACH
--- NOTE | 2016-12-05 07:45 | NUR ---
TRANSFERRED FROM BED TO WHEELCHAIR AND SET UP BREAKFAST TRAY. ALERT AND ORIENTED. NO S/SX OF DISTRESS. OFFERS NO COMPLAINTS. CALL LIGHT WITHIN REACH. WILL CONTINUE TO MONTIOR
[2016-12-05 08:00] VITALS: BP 114/58
--- NOTE | 2016-12-05 09:51 | NUR ---
IN THERAPY GYM WITH PHYSICAL THERAPY. ADMINISTERED MORNING MEDS WITHOUT DIFFICULTY. DENIES ANY PAIN, NO CONCERNS VOICED. WILL CONTINUE TO MONITOR
--- NOTE | 2016-12-05 15:00 | NUR ---
SITTING UP IN WHEELCHAIR WATCHING TV. OFFERS NO COMPLAINTS. DENIES ANY PAIN. CALL LIGHT WITHIN REACH. WILL CONTINUE TO MONITOR
--- NOTE | 2016-12-05 18:46 | NUR ---
TRANSFERRED FROM W/C TO BED WITH MOD ASSIST. OFFERS NO COMPLAINTS. DENIES PAIN. CALL LIGHT IN REACH
--- NOTE | 2016-12-05 19:30 | NUR ---
PT IS RESTING IN BED WITH EYES OPEN. ALERT AND ORIENTED X 3. DENIES PAIN OR DISCOMFORT. NO NEEDS VOICED. HERNANDEZ CATH IS PATENT AND DRAINING TO A GRAVITY BAG. SR'S ARE UP X 3 IN BED. CALL LIGHT AND BEDSIDE TABLE ARE WITHIN EASY REACH.
[2016-12-05 20:00] VITALS: BP 111/59
--- NOTE | 2016-12-05 20:01 | NUR ---
PT. IN BED WITH HOB UP FOR COMFORT. EYES CLOSED AND RESP. EVEN. HERNANDEZ TO BSD WITHOUT PROBLEMS AND HE HAS HIS CALL LIGHT WITHIN REACH.
--- NOTE | 2016-12-05 22:14 | NUR ---
PT IS RESTING IN BED WATCHING TV. NO ACUTE DISTRESS NOTED.
--- NOTE | 2016-12-06 00:26 | NUR ---
RESTING IN BED WITH EYES CLOSED.
--- NOTE | 2016-12-06 03:33 | NUR ---
RESTING IN BED WITH EYES CLOSED.
--- NOTE | 2016-12-06 07:40 | NUR ---
ASSISTED FROM BED TO WHEELCHAIR WITH MOD ASSIST. ALERT AND ORIENTED X3. OFFERS NO COMPLAINTS. CALL LIGHT WITHIN REACH. WILL CONTINUE TO MONITOR
[2016-12-06 08:00] VITALS: BP 117/62
--- NOTE | 2016-12-06 09:29 | NUR ---
PROPELLING SELF DOWN HALLWAY IN WHEELCHAIR. OFFERS NO COMPLAINTS. NO S/SX OF DISTRESS. ASSISTED PT BACK TO ROOM TO ADMINISTER MORNING MEDS. CALL LIGHT WITHIN REACH. WILL CONTINUE TO MONITOR
--- NOTE | 2016-12-06 11:30 | NUR ---
SITTING UP IN WHEELCHAIR VISITING WITH DAUGHTER. OFFERS NO COMPLAINTS. CALL LIGHT WITHIN REACH. WILL CONTIUE TO MONITOR
--- NOTE | 2016-12-06 14:25 | NUR ---
SITTING UP IN WHEELCHAIR WATCHING TV. OFFERS NO COMPLAINTS AND DENIES PAIN. CALL LIGTH WITHIN REACH. WILL CONTINUE TO MONITOR
--- NOTE | 2016-12-06 17:33 | NUR ---
PERFORMED INCONTINENCE CARE DUE TO MED STOOL INCONTINENCE SEMISOLID. CHANGED DRESSING TO COCCYX. STAGE II LEFT BUTTOCK CHEEK APPROXIMATELY NICKEL SIZE, MEPILEX DRESSING APPLIED. CALL LIGHT WITHIN REACH. WILL CONTINUE TO MONITOR
--- NOTE | 2016-12-06 18:12 | NUR ---
PT RESTING ,DENIES NEEDS. WCTM.
[2016-12-06 19:27] VITALS: BP 135/67
--- NOTE | 2016-12-06 19:41 | NUR ---
PT IS RESTING QUIETLY IN BED WITH EYES OPEN. ALERT TO SELF AND ROOM ONLY. DISORIENTED TO TIME AND SITUATION. HERNANDEZ CATH IS PATENT AND DRAINING TO A GRAVITY BAG. NO NEEDS VOICED AT THIS TIME. SR'S ARE UP X 3 IN BED. CALL LIGHT AND BEDSIDE TABLE ARE WITHIN EASY REACH.
--- NOTE | 2016-12-06 19:41 | NUR ---
PT. IN BED LYING ON HIS LEFT SIDE WITH EYES CLOSED AND RESP. EVEN. CALL LIGHT WITHIN REACH.
--- NOTE | 2016-12-06 21:35 | NUR ---
PT TURNED AND REPOSITIONED IN BED WITH TOTAL ASSIST. HE REFUSED TO ATTEMPT TO HELP IN ANY WAY.
--- NOTE | 2016-12-07 00:01 | NUR ---
PT RESTING IN BED. ANXIOUS TO GET UP AND CALL HIS CONDENSER CLEANER. PT ENCOURAGED TO WAIT UNTIL AM AND THE EEG TECH WILL WORK WITH HIM.
--- NOTE | 2016-12-07 03:29 | NUR ---
RESTING IN BED WITH EYES CLOSED.
--- NOTE | 2016-12-07 06:46 | NUR ---
PT SHOWERED WITH MOD ASSIST. ALL TRANSFERS ARE TOTAL ASSIST. DRESSED WITH MAX ASSIST. PT SITTING UP IN WC PER HIS REQUEST AFTER SHOWER.
[2016-12-07 07:08] LABS: BASOPHILS 0.1 % (0-2); EOSINOPHILS 1.1 % (0-7); HEMOGLOBIN 12.3 g/dL (13.5-17.5); IMMATURE GRANULOCYTES 0.3 % (0-5); LYMPHOCYTES 7.6 % (15-50); MCH 31.4 pg (26.0-34.0); MCHC 33.2 g/dL (31.0-37.0); MCV 94.4 fL (80.0-100.0); MONOCYTES 4.6 % (2-11); NEUTROPHILS 86.3 % (40-80); RBC 3.92 10x6/uL (4.20-6.10); RDW 14.4 % (11.5-14.5); WBC 18.5 10x3/uL (4.8-10.8)
[2016-12-07 07:12] LABS: PLATELET COUNT 267 10x3/uL (130-400)
[2016-12-07 07:15] LABS: ANION GAP 10.7 mmol/L (8-16); CALCIUM 9.3 mg/dL (8.5-10.1); CARBON DIOXIDE 28.6 mmol/L (21.0-32.0); CREATININE - SERUM 1.6 mg/dL (0.6-1.3); POTASSIUM - SERUM 4.3 mmol/L (3.5-5.1)
[2016-12-07 08:00] VITALS: BP 110/45
--- NOTE | 2016-12-07 09:34 | NUR ---
PATIENT ALERT/ORIENT. IN REHAB ROOM WORKING WITH PHYSICAL THERAPIST. DENIES ANY PAIN/DISC AT THIS TIME. DR. Teresita JACKSON INTOSEE PATIENT. NEW ORDERS RECEIVED.
--- NOTE | 2016-12-07 10:23 | NUR ---
PATIENT TAKEN UP TO RADILOGY FOR CHEST X-RAY
--- NOTE | 2016-12-07 10:25 | NUR ---
PATIENT ADMITTED TO REHAB FROM ACUTE FLOOR. HIS DAUGHTER HAYLEY WILL ASSIST HIM AT DISCHARGE.DME AT HOME: WALKER, WHEELCHAIR, SHOWER CHAIR, CANE . AN CELL TESTER FROM [facility] SEES HIM ON A WEEKLY BASIS AT HIS HOME. [facility] IS HIS LOCAL PHARMACY. DAUGHTER HAYLEY [phone]. WILL CONTINUE TO FOLLOW WITH PATIENT.
--- NOTE | 2016-12-07 13:45 | NUR ---
PATIENT IS A MAX TRANSFER OF TWO FROM WHEELCHAIR ONTO TOILET. PATIENT HAS A HERNANDEZ CATH. PATIENT UNABLE TO WIPE SELF AFTER BOWEL MOVEMENT.
--- NOTE | 2016-12-07 16:14 | NUR ---
CLINICALS FAXED TO [facility] AT , AUTH # [id number] WITH CONFORMATION RECIEVED
--- NOTE | 2016-12-07 19:40 | NUR ---
THIS RN AND LEONEL ALEJO TRANSFERRED PT TO BED, PT HAD LARGE BM, PT CLEANED UP WITH WET WARM WASH CLOTHS AND WIPES, PT CHANGED INTO GOWN, HERNANDEZ CATH SECURED TO LEG WITH CLEAN STATLOCK, ASSESSMENT PER FLOW SHEET, PT DENIES PAIN, PT REPORTS THAT HE IS READY TO GET SOME REST, PT DENIES NEEDS AT THIS TIME
--- NOTE | 2016-12-07 20:40 | NUR ---
PT RESTING WITH EYES CLOSED, RESP QUIET, NO DISTRESS NOTED, LEFT UNDISTURBED AT THIS TIME
[2016-12-07 21:45] VITALS: BP 135/51
--- NOTE | 2016-12-07 21:55 | NUR ---
ADM 2100 MEDS PER MD ORDERS, SEE EMAR
--- NOTE | 2016-12-07 23:21 | NUR ---
HERNANDEZ CATH CLAMPED FOR UA, ADM NORCO PO PER MD ORDERS FOR PAIN, SEE EMAR
--- NOTE | 2016-12-07 23:45 | NUR ---
URINE COLLECTED, HERNANDEZ UNCLAMPED, PT REQUESTS TO BE LEFT ALONE TO GET SOME REST, PT DENIES NEEDS AT THIS TIME
[2016-12-08 00:24] LABS: APPEARANCE CLEAR (CLEAR); BILIRUBIN NEGATIVE (NEGATIVE); COLOR YELLOW (YELLOW); GLUCOSE NEGATIVE (NEGATIVE); KETONE NEGATIVE (NEGATIVE); LEUKOCYTE ESTERASE 1+ (NEGATIVE); NITRITE NEGATIVE (NEGATIVE); PROTEIN NEGATIVE (NEGATIVE); UROBILINOGEN NORMAL (NORMAL)
[2016-12-08 00:28] LABS: BACTERIA FEW /hpf (NONE SEEN); EPITHELIAL CELLS NSEEN /hpf (0-5); RED CELLS - URINE 0-5 /hpf (0-5); WHITE CELLS - URINE 0-5 /hpf (0-5)
--- NOTE | 2016-12-08 00:32 | NUR ---
PT RESTING WITH EYES CLOSED, RESP QUIET, NO DISTRESS NOTED, LEFT UNDISTURBED AT THIS TIME
--- NOTE | 2016-12-08 02:15 | NUR ---
PT RESTING WITH EYES CLOSED, RESP QUIET, NO DISTRESS NOTED, LEFT UNDISTURBED AT THIS TIME, BED IN LOW POSITION, SIDE RAILS X 2, CALL LIGHT IN REACH, BED ALARM ON AND WORKING PROPERLY
--- NOTE | 2016-12-08 04:09 | NUR ---
PT CHE, C/O PAIN, ADM NORCO PO PER MD ORDERS, SEE EMAR, HERNANDEZ CATH EMPTIED, PT DENIES FURTHER NEEDS, BED IN LOW POSITION, SIDE RAILS X 2, CALL LIGHT IN REACH, BED ALARM AND WORKING PROPERLY
--- NOTE | 2016-12-08 06:43 | NUR ---
SHIFT REPORT TO DAY SHIFT
--- NOTE | 2016-12-08 08:25 | NUR ---
PT RESTING IN BED WITH EYES OPEN CALL LIGHT IN REACH NO PROBLEMS WILL MONITER
[2016-12-08 08:32] VITALS: BP 112/50
--- NOTE | 2016-12-08 11:05 | NUR ---
referral given to Agustina Pollock for possible admission to [facility] . possible discharge on 12/09 or 12/10. will contiune to follow with patient.
--- NOTE | 2016-12-08 12:00 | NUR ---
PT RESTING IN BED WITH EYES OPEN CALL LIGHT IN REACH NO PROBLEMS WILL MONITER
--- NOTE | 2016-12-08 13:45 | NUR ---
Nurition Follow Up: Pt is eating 89% meal avg on an AHA diet. +BM 12/07/16. Labs and meds reviewed. Rec continue current diet. RD following.
--- NOTE | 2016-12-08 18:03 | NUR ---
PT RESTING IN BED WITH EYES OPEN CALL LIGHT IN REACH NO PROBLEMS WILL MONITERS
--- NOTE | 2016-12-08 18:05 | NUR ---
PT RESTING IN BED WITH EYES OPEN CALL LIGHT IN REACH NO PROBLEMS WILL MONITER
[2016-12-08 20:04] VITALS: BP 146/56
--- NOTE | 2016-12-08 22:38 | NUR ---
ASSISTED PT TO BATHROOM, AND PT HAS BM.
--- NOTE | 2016-12-09 03:15 | NUR ---
REST IN BED, EYE CLOSE, CALL LIGHT IN REACH.
--- NOTE | 2016-12-09 03:20 | NUR ---
UP IN RECLINER AT BEDSIDE. RESTING QUIETLY.
[2016-12-09 06:34] LABS: BASOPHILS 0.2 % (0-2); EOSINOPHILS 4.9 % (0-7); HEMATOCRIT 35.5 % (42.0-54.0); HEMOGLOBIN 11.7 g/dL (13.5-17.5); IMMATURE GRANULOCYTES 0.2 % (0-5); LYMPHOCYTES 14.3 % (15-50); MCV 94.2 fL (80.0-100.0); MEAN PLATELET VOLUME 10.9 fL (7.4-10.4); MONOCYTES 7.1 % (2-11); NEUTROPHILS 73.3 % (40-80); PLATELET COUNT 250 10x3/uL (130-400); RBC 3.77 10x6/uL (4.20-6.10); RDW 14.4 % (11.5-14.5)
[2016-12-09 06:49] LABS: CALCIUM 9.1 mg/dL (8.5-10.1); CARBON DIOXIDE 29.3 mmol/L (21.0-32.0); CREATININE - SERUM 1.5 mg/dL (0.6-1.3); POTASSIUM - SERUM 4.3 mmol/L (3.5-5.1)
[2016-12-09 07:03] LABS: WBC 9.2 10x3/uL (4.8-10.8)
--- NOTE | 2016-12-09 08:00 | NUR ---
PATIENT IS ALERT TO PLACE. CAN NOT TELL ME THE MONTH OR DATE. BED AND BOX ALARM ON AT ALL TIMES. USING CALL LIGHT FOR NEEDS. CALL LIGHT WITHIN REACH.
[2016-12-09 08:52] VITALS: BP 129/54
--- NOTE | 2016-12-09 10:08 | NUR ---
PATIENT IN REHAB ROOM. DENIES ANY PAIN/DISC AT THIS TIME.
--- NOTE | 2016-12-09 10:25 | NUR ---
PATIENT WORKING WITH OCCUPATIONAL THERAPIST, THERPIST WORKING WITH HELPING PATIENT WITH A SHOWER. MAX ASST WITH SHOWER. MEPILEX DRESSING APPLIED TO BUTTOM.
--- NOTE | 2016-12-09 12:39 | NUR ---
PATIENT SITTING UP IN WHEELCHAIR IN ROOM. ON THE PHONE WITH HIS DAUGHTER. VERY CONFUSED WHEN TALKING TO HIS DAUGHTER. YELLING AT DAUGHTER ON THE PHONE.
--- NOTE | 2016-12-09 14:16 | NUR ---
PRN PAIN MEDICATION FOR NEUOPATHY BILATERAL LEGS
--- NOTE | 2016-12-09 19:00 | NUR ---
PRN PAIN MEDICATION GIVEN FOR BILATERAL FEET PAIN PER PATIENT REQUEST
--- NOTE | 2016-12-09 19:30 | NUR ---
PT IN BED WITH HOB UP FOR COMFORT. WATCHING TV. PT STATES HE IS NOT IN ANY PAIN. PT'S CODE STATUS IS DNR. BED ALARM . NO O2. NO IV. HERNANEDZ CATH. INCONTINENT OF BOWEL. MAX X2. BED IN LOWEST POSITION AND CALL LIGHT WITHIN REACH.
--- NOTE | 2016-12-09 20:00 | NUR ---
PT IN BED WITH HOB UP FOR COMFORT. WATCHING TV. HERNANDEZ. NO O2. NO IV. BED ALARM. DNR. BED IN LOWEST POSITION AND CALL LIGHT WITHIN REACH.
--- NOTE | 2016-12-09 20:44 | NUR ---
PT. IN BED WITH HOB UP FOR COMFORT AND IS WATCHING TV. NO VOICED NEEDS AND HIS CALL LIGHT IS WITHIN REACH. HERNANDEZ TO BSD WITHOUT ANY PROBLEMS.
[2016-12-09 21:46] VITALS: BP 103/46
--- NOTE | 2016-12-10 | NUR ---
PT UP IN BED WITH HOB UP FOR COMOFRT. RESTING QUIETLY. BED IN LOWEST POSITION AND CALLL LIGHT WITHIN REACH.
--- NOTE | 2016-12-10 01:49 | NUR ---
PT SITTING UP IN BED WITH ATTENTION FOCUSED ON TELEVISION DENIES NEEDS AT THIS TIME WILL CONTINUE TO MONITOR
--- NOTE | 2016-12-10 05:45 | NUR ---
PT LYING IN BED. EYES CLOSED. RESP. EVEN. BED IN LOWEST POSITION AND CALL LIGHT WITHIN REACH.
--- NOTE | 2016-12-10 08:43 | NUR ---
PT RESTING IN BED WITH EYES OPEN CALL LIGHT IN REACH NO PROBLEMS WILL MONITER
--- NOTE | 2016-12-10 12:24 | NUR ---
EATING LUNCH. DENIES NEEDS OR C/O.
--- NOTE | 2016-12-10 14:56 | NUR ---
PT RESTING IN BED WITH EYES OPEN CALL LIGHT IN REACH WILL MONITER
--- NOTE | 2016-12-10 19:30 | NUR ---
PT IN BED WITH HOB UP FOR COMFORT. WATCHING TV. PT STATES HE IS NOT IN ANY PAIN. PT'S CODE STATUS IS DNR. BED ALARM . NO O2. NO IV. HERNANDEZ CATH. INCONTINENT OF BOWEL. MAX X2. BED IN LOWEST POSITION AND CALL LIGHT WITHIN REACH.
[2016-12-10 19:58] VITALS: BP 112/56
--- NOTE | 2016-12-10 23:30 | NUR ---
PT IN BED WITH HOB UP FOR COMFORT. RESTING QUIETLY. BED IN LOWEST POSITION AND CALL LIGHT WITHIN REACH.
--- NOTE | 2016-12-11 03:30 | NUR ---
PT IN BED WITH HOB UP FOR COMFORT. EYES CLOSED. RESPIRATIONS EVEN AND UNLABORED. BED IN LOWEST POSITION AND CALL LIGHT WITHIN REACH.
--- NOTE | 2016-12-11 04:49 | NUR ---
UP IN BED WITH EYES OP[EN. PRIMING MIXTURE CARRIER LIGHT MOST OF NIGHT AND C/O BEING A PRISIONER. 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 VERY RUDE AND AGGITATED. NO S/S OF PAIN. CALL LIGHT IN REACH.
[2016-12-11 04:57] LABS: BASOPHILS 0.3 % (0-2); HEMATOCRIT 32.7 % (42.0-54.0); HEMOGLOBIN 10.8 g/dL (13.5-17.5); IMMATURE GRANULOCYTES 0.2 % (0-5); LYMPHOCYTES 17.2 % (15-50); MCH 30.7 pg (26.0-34.0); MCV 92.9 fL (80.0-100.0); MEAN PLATELET VOLUME 9.9 fL (7.4-10.4); MONOCYTES 7.6 % (2-11); NEUTROPHILS 69.7 % (40-80); PLATELET COUNT 262 10x3/uL (130-400); RBC 3.52 10x6/uL (4.20-6.10); RDW 14.1 % (11.5-14.5)
[2016-12-11 05:01] LABS: WBC 6.5 10x3/uL (4.8-10.8)
[2016-12-11 05:11] LABS: CALCIUM 8.3 mg/dL (8.5-10.1); CARBON DIOXIDE 28.8 mmol/L (21.0-32.0); CREATININE - SERUM 1.6 mg/dL (0.6-1.3); POTASSIUM - SERUM 4.8 mmol/L (3.5-5.1)
[2016-12-11 09:02] VITALS: BP 132/79
--- NOTE | 2016-12-11 13:49 | NUR ---
PATIENT DISCHARGING TO [facility] AND WILL TRANSPORT THERE VIA FACILITY VAN.NO DME OR HOME HEALTH NEEDED AT THIS TIME. PATIENT CHOICE FORM FOR SNF AND [facility] FORM SIGNED, EXPLAINED AND FILED IN CHART.PHONE NUMBER FOR DAUGHTER IS WRONG NUMBER LISTED.
--- NOTE | 2016-12-11 14:15 | NUR ---
PT DISCHARGED TO [facility] WITH [facility] [employer]RI[employer] PROFESSOR REPORT CALLED TO [facility] DISCHARGE MEDS AND SUMMARY SENT WITH [employer]RI[employer]RI[employer] PROFESSOR PT DISCHARGED WITH HERNANDEZ CATH VIA WHEELCHAIR NO PROBLEMS TOLERATED WELL
== END 2016-12-11 14:55 | DRG 557 ==
LOC: D.REHAB 21:15
PROVIDERS: ADMIT Emergency Medicine
DX: M62.82 Rhabdomyolysis (principal); J18.9 Pneumonia, unspecified organism; C34.90 Malignant neoplasm of unspecified part of unspecified bronchus or lung; N39.0 Urinary tract infection, site not specified; E11.9 Type 2 diabetes mellitus without complications; G62.9 Polyneuropathy, unspecified; E86.0 Dehydration; T14.8 Other injury of unspecified body region; W19.XXXD Unspecified fall, subsequent encounter; J44.9 Chronic obstructive pulmonary disease, unspecified; R53.1 Weakness; M10.9 Gout, unspecified; M19.90 Unspecified osteoarthritis, unspecified site; I49.9 Cardiac arrhythmia, unspecified

== ENCOUNTER 2017-08-23 17:53 | Inpatient (IN) | payer MEDICARE ==
[~2017-08-23] VITALS: Ht 180.3 cm; Wt 83.0 kg
--- NOTE | ~2017-08-23 | PN ---
PATIENT:LYNDA STROUD MEDICAL RECORD: [id number] LOCATION:[facility] ADMISSION DATE: 08/23/17 PROGRESS NOTE DATE OF SERVICE: 08/27/2017 SUBJECTIVE: The patient's case was discussed with staff. He has no new complaint. OBJECTIVE: The patient is in good behavioral control with limited insight about his condition. He does tolerate his medicines well. ASSESSMENT: No change in diagnoses. PLAN: Current medicines and therapies have been reviewed and will be maintained. Long-term prognosis is guarded. TRANSINT:[id number] Voice Confirmation ID: [id number] DOCUMENT ID: [id number] DIEGO WYNN MD at 2006 CC: [id number] DICTATION DATE: 08/27/17 1208 SUSTAINABILITY COORDINATOR: 08/27/17 1228 ADM IN [address] [address]
--- NOTE | ~2017-08-23 | PN ---
PATIENT:LYNDA STROUD MEDICAL RECORD: [id number] LOCATION:[facility] ADMISSION DATE: 08/23/17 PROGRESS NOTE DATE OF SERVICE: 08/29/2017 SUBJECTIVE: The patient's case was discussed with staff. He has no new complaint. OBJECTIVE: The patient is in good behavioral control with limited insight about his condition. He tolerates his medicines well. ASSESSMENT: No change in diagnoses. PLAN: Supportive and educational interventions were made. Long-term prognosis is guarded. TRANSINT:[id number] Voice Confirmation ID: [id number] DOCUMENT ID: [id number] DIEGO WYNN MD at 1407 CC: [id number] DICTATION DATE: 08/29/17 1132 REEL MAN: 08/29/17 1437 ADM IN [place] [id number] [place] [address]
--- NOTE | ~2017-08-23 | PN ---
PATIENT:LYNDA STROUD MEDICAL RECORD: [id number] LOCATION:[facility] ADMISSION DATE: 08/23/17 PROGRESS NOTE DATE OF SERVICE: 08/26/2017 SUBJECTIVE: The patient's case was discussed with staff. He has no new complaint. OBJECTIVE: The patient is in good behavioral control with limited insight about his condition. He does tolerate his medicines well. ASSESSMENT: No change in diagnoses. PLAN: Current medicines and therapies have been reviewed and will be maintained. Long-term prognosis is guarded. I am going to discontinue his Klonopin secondary to some oversedation that is mild. He will be monitored for clinical changes associated with its discontinuation. TRANSINT:[id number] Voice Confirmation ID: [id number] DOCUMENT ID: [id number] DIEGO WYNN MD at 1159 CC: [id number] DICTATION DATE: 08/26/17 1258 YOUTH COORDINATOR: 08/26/17 1313 ADM IN [place] [id number] [place] [id number]
--- NOTE | ~2017-08-23 | PN ---
PATIENT:LYNDA STROUD MEDICAL RECORD: [id number] LOCATION:[facility] ADMISSION DATE: 08/23/17 PROGRESS NOTE DATE OF SERVICE: 09/07/2017 SUBJECTIVE: The patient's case was discussed with staff. He has no new complaint. OBJECTIVE: The patient is in good behavioral control with limited insight about his condition. He tolerates his medicines well. ASSESSMENT: No change in diagnoses. PLAN: The patient will be transitioned out of the hospital tomorrow. He is going to go to a local correction. Follow up will be with his primary care correction physician. TRANSINT:[id number] Voice Confirmation ID: [id number] DOCUMENT ID: [id number] DIEGO WYNN MD at 1348 CC: [id number] DICTATION DATE: 09/07/[address] PAINTER: 09/07/17 1648 ADM IN [place] [id number] [place] [id number]
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
--- NOTE | ~2017-08-23 | PN ---
PATIENT:LYNDA STROUD MEDICAL RECORD: [id number] LOCATION:[facility] ADMISSION DATE: 08/23/17 PROGRESS NOTE DATE OF SERVICE: 08/25/2017 SUBJECTIVE: The patient's case was discussed with staff. He has no new complaint. OBJECTIVE: The patient is still very disorganized. He is drowsy, but when shaken he wakes up easily and is clearly very angry. He starts yelling and rambling incoherently. ASSESSMENT: No change in diagnoses. PLAN: The patient is going to be maintained on both the antipsychotic and benzodiazepine at this dose today. It may not have had an opportunity to become effective. His long-term prognosis is guarded. TRANSINT:[id number] Voice Confirmation ID: [id number] DOCUMENT ID: [id number] DIEGO WYNN MD at 1244 CC: [id number] DICTATION DATE: 08/25/17 1308 [employer]LE [employer]CHO[employer] MATH TEACHER: 08/25/17 1313 ADM IN [id number] [place] [address]
--- NOTE | ~2017-08-23 | PN ---
PATIENT:LYNDA STROUD MEDICAL RECORD: [id number] LOCATION:[facility] ADMISSION DATE: 08/23/17 PROGRESS NOTE DATE OF SERVICE: 08/28/2017 SUBJECTIVE: The patient's case was discussed with staff. He has no new complaint. OBJECTIVE: The patient is very disorganized. He still appears significantly impaired. He is generally tolerating his medicines well. Eye contact is poor. ASSESSMENT: No change in diagnoses. PLAN: Current medicines and therapies have been reviewed and will be maintained. Long-term prognosis is guarded. He will have his Geodon stopped secondary to some ongoing sedation. TRANSINT:[id number] Voice Confirmation ID: [id number] DOCUMENT ID: [id number] DIEGO WYNN MD at 1101 CC: [id number] DICTATION DATE: 08/28/17 1201 SPECIALIST FIELD ENGINEER: 08/28/17 2250 ADM IN [place] [id number] [place] [address]
--- NOTE | ~2017-08-23 | PN ---
PATIENT:LYNDA STROUD MEDICAL RECORD: [id number] LOCATION:[facility] ADMISSION DATE: 08/23/17 PROGRESS NOTE DATE OF SERVICE: 09/01/2017 SUBJECTIVE: The patient's case was discussed with staff. He has no new complaint. OBJECTIVE: The patient is in good behavioral control with very limited insight about his condition. He apparently does have a fair amount of discomfort likely related to the diabetes. He is going to be treated with a Duragesic patch that will hopefully relieve some of this discomfort. His long-term prognosis is guarded. TRANSINT:[id number] Voice Confirmation ID: [id number] DOCUMENT ID: [id number] DIEGO WYNN MD at 1332 CC: [id number] DICTATION DATE: 09/01/17 1303 SWITCHGEAR REPAIRER: 09/01/17 1355 ADM IN [place] [id number] [place] [address]
--- NOTE | ~2017-08-23 | PN ---
PATIENT:LYNDA STROUD MEDICAL RECORD: [id number] LOCATION:[facility] ADMISSION DATE: 08/23/17 PROGRESS NOTE DATE OF SERVICE: 09/03/2017 SUBJECTIVE: The patient's case was discussed with staff. He has no new complaint. OBJECTIVE: The patient denies intent to harm himself or others. He tolerates his medicines well. ASSESSMENT: No change in diagnoses. PLAN: Current medicines have been reviewed and will be maintained. Long-term prognosis is guarded. He is in need of an endoscopic study, but so far family cannot be reached. TRANSINT:[id number] Voice Confirmation ID: [id number] DOCUMENT ID: [id number] DIEGO WYNN MD at 0908 CC: [id number] DICTATION DATE: 09/03/17 1552 CATCHER HELPER: 09/03/17 1629 ADM IN [place] [id number] [place] [id number]
--- NOTE | ~2017-08-23 | PN ---
PATIENT:LYNDA STROUD MEDICAL RECORD: [id number] LOCATION:[facility] ADMISSION DATE: 08/23/17 PROGRESS NOTE DATE OF SERVICE: 09/06/2017 SUBJECTIVE: The patient's case was discussed with staff. He has no new complaint. OBJECTIVE: The patient is in good behavioral control with limited insight about his condition. He tolerates his medicines well. ASSESSMENT: No change in diagnoses. PLAN: Brief supportive and educational interventions were made. Retirement prognosis is guarded. I anticipate the patient can be transitioned to the senior living as soon as the office of long-term care gives us approval. TRANSINT:[id number] Voice Confirmation ID: [id number] DOCUMENT ID: [id number] DIEGO WYNN MD at 1433 CC: [id number] DICTATION DATE: 09/06/17 1433 COIL MACHINE OPERATOR: 09/06/17 1452 ADM IN [facility] [address] [place] [address]
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
--- NOTE | ~2017-08-23 | PN ---
PATIENT:LYNDA STROUD MEDICAL RECORD: [id number] LOCATION:[facility] ADMISSION DATE: 08/23/17 PROGRESS NOTE DATE OF SERVICE: 08/31/2017 SUBJECTIVE: The patient's case was discussed with staff. He has no new complaint. OBJECTIVE: The patient is severely impaired cognitively with limited insight about his condition. He does tolerate his medicines well. ASSESSMENT: No change in diagnoses. PLAN: Supportive and educational interventions were made. Long-term prognosis is guarded. TRANSINT:[id number] Voice Confirmation ID: [id number] DOCUMENT ID: [id number] DIEGO WYNN MD at 1236 CC: [id number] DICTATION DATE: 08/31/17 1316 MARKETING TRAFFIC MANAGER: 08/31/17 1401 ADM IN [place] [id number] [place] [id number]
--- NOTE | ~2017-08-23 | PN ---
PATIENT:LYNDA STROUD MEDICAL RECORD: [id number] LOCATION:[facility] ADMISSION DATE: 08/23/17 PROGRESS NOTE DATE OF SERVICE: 09/08/2017 SUBJECTIVE: The patient's case was discussed with staff. He has no new complaint. OBJECTIVE: The patient is in good behavioral control with limited insight about his condition. He tolerates his medicines well. ASSESSMENT: No change in diagnoses. PLAN: Current medicines and therapies have been reviewed and will be maintained. Long-term prognosis is guarded. TRANSINT:[id number] Voice Confirmation ID: [id number] DOCUMENT ID: [id number] DIEGO WYNN MD at 1326 CC: [id number] DICTATION DATE: 09/08/17 1407 CRIMPING PRESS OPERATOR: 09/08/17 1415 DIS IN 09/08/[address] [facility] [address] [place] [address]
--- NOTE | ~2017-08-23 | PN ---
PATIENT:LYNDA STROUD MEDICAL RECORD: [id number] LOCATION:[facility] ADMISSION DATE: 08/23/17 PROGRESS NOTE DATE OF SERVICE: 09/04/2017 SUBJECTIVE: The patient's case was discussed with staff. He has no new complaint. OBJECTIVE: The patient has not been aggressive today. He is severely impaired cognitively. He seems to be yelling out randomly less than he previously was and I would attribute that to the Duragesic patch that is relieving the discomfort of his neuropathy. He has some medical issues that need to be addressed and watch and clock repairer is assisting with the case, but the family cannot be contacted and at this point, the EGD that he needs is pending. ASSESSMENT: No change in diagnoses. PLAN: Once medically cleared and appropriate arrangements are made for his housing and care, he can be discharged. TRANSINT:[id number] Voice Confirmation ID: [id number] DOCUMENT ID: [id number] DIEGO WYNN MD at 1433 CC: [id number] DICTATION DATE: 09/04/17927 NURSING HOME PHYSICIAN: 09/04/17940 ADM IN [facility] [address] [place] [id number]
--- NOTE | ~2017-08-23 | PN ---
PATIENT:LYNDA STROUD MEDICAL RECORD: [id number] LOCATION:[facility] ADMISSION DATE: 08/23/17 PROGRESS NOTE DATE OF SERVICE: 08/30/2017 SUBJECTIVE: The patient's case was discussed with staff. He has no new complaint. OBJECTIVE: The patient is in good behavioral control with limited insight about his condition. He tolerates his medicines well. ASSESSMENT: No change in diagnoses. PLAN: Brief supportive and educational interventions were made. Long-term prognosis is guarded. I am going to maintain the patient on current medicines, which I have reviewed and I would anticipate he can reasonably be transitioned out of the hospital soon if this level of improvement is maintained. TRANSINT:[id number] Voice Confirmation ID: [id number] DOCUMENT ID: [id number] DIEGO WYNN MD at 1236 CC: [id number] DICTATION DATE: 08/30/17 1437 TUNNELLER: 08/30/17 1628 ADM IN [place] [id number] [place] [id number]
--- NOTE | ~2017-08-23 | PN ---
PATIENT:LYNDA STROUD MEDICAL RECORD: [id number] LOCATION:[facility] ADMISSION DATE: 08/23/17 PROGRESS NOTE DATE OF SERVICE: 09/02/2017 SUBJECTIVE: The patient's case was discussed with staff. He has no new complaint. OBJECTIVE: The patient is oriented to person, place and somewhat to time and situation. He is much calmer since being placed on the Duragesic patch. He has not been aggressive today. ASSESSMENT: No change in diagnoses. PLAN: Current medicines have been reviewed and will be maintained. Long-term prognosis is guarded. TRANSINT:[id number] Voice Confirmation ID: [id number] DOCUMENT ID: [id number] DIEGO WYNN MD at 1521 CC: [id number] DICTATION DATE: 09/02/17 1404 BUILDING INSPECTION ENGINEER: 09/02/17 1500 ADM IN [place] [id number] [place] [id number]
[2017-08-23] MEDS ORDERED: ARICEPT10 MG PO (20:16)
[2017-08-23] MEDS ORDERED: ATIVAN0.5 MG PO (20:18)
[2017-08-23] MEDS ORDERED: GUAIFENESI100 MG/5 M PO (20:22)
[2017-08-23] MEDS ORDERED: CENTRUM SILVER1 TA1 (20:24)
[2017-08-23] MEDS ORDERED: CENTRUM SILVER1 TA1 PO (20:26)
[2017-08-23] MEDS ORDERED: JANUVIA100 MG PO (20:28)
[2017-08-23] MEDS ORDERED: NOVOLOG100 U/M1 SC (20:31)
[2017-08-23] MEDS ORDERED: TRAMADOL HCL E100 M1 PO (20:33)
[2017-08-24 06:45] LABS: BASOPHILS 0.2 % (0-2); EOSINOPHILS 3.9 % (0-7); HEMATOCRIT 36.7 % (42.0-54.0); HEMOGLOBIN 12.2 g/dL (13.5-17.5); IMMATURE GRANULOCYTES 0.3 % (0-5); LYMPHOCYTES 13.3 % (15-50); MCH 31.5 pg (26.0-34.0); MCHC 33.2 g/dL (31.0-37.0); MCV 94.8 fL (80.0-100.0); MEAN PLATELET VOLUME 11.3 fL (7.4-10.4); MONOCYTES 7.4 % (2-11); NEUTROPHILS 74.9 % (40-80); RBC 3.87 10x6/uL (4.20-6.10); RDW 15.4 % (11.5-14.5); WBC 8.9 10x3/uL (4.8-10.8)
[2017-08-24 06:56] LABS: PLATELET COUNT 222 10x3/uL (130-400)
[2017-08-24 07:20] LABS: ALBUMIN 2.5 g/dL (3.4-5.0); ANION GAP 14.5 mmol/L (8-16); BILIRUBIN - TOTAL 0.74 mg/dL (0.2-1.3); CALCIUM 9.2 mg/dL (8.5-10.1); CARBON DIOXIDE 27.1 mmol/L (21.0-32.0); CHOL - HDL RATIO 2.7 ratio (2.3-4.9); CREATININE - SERUM 1.6 mg/dL (0.6-1.3); LDL-HDL RATIO 1.4 ratio (1.5-3.5); POTASSIUM - SERUM 4.6 mmol/L (3.5-5.1); THYROID STIMULATING HORMONE 2.57 uIU/mL (0.36-3.74)
[2017-08-24 09:30] VITALS: BP 142/65
[2017-08-24 17:47] LABS: APPEARANCE CLEAR (CLEAR); BILIRUBIN NEGATIVE (NEGATIVE); COLOR YELLOW (YELLOW); GLUCOSE NEGATIVE (NEGATIVE); KETONE NEGATIVE (NEGATIVE); NITRITE NEGATIVE (NEGATIVE); PROTEIN TRACE mg/dL (NEGATIVE); SPECIFIC GRAVITY 1.015 (1.005-1.020); UROBILINOGEN NORMAL (NORMAL)
[2017-08-24 21:16] VITALS: BP 139/60
[2017-08-25 06:14] LABS: RAPID PLASMA REAGIN Non Reactive (Non Reactive)
[2017-08-25 10:19] LABS: VITAMIN D 25 HYDROXY 24.4 ng/mL (30.0-100.0)
[2017-08-25 10:40] VITALS: BP 132/52
[2017-08-25 19:45] VITALS: BP 139/69
[2017-08-26 09:06] VITALS: BP 126/55
[2017-08-26 21:12] VITALS: BP 143/60
[2017-08-27 08:13] VITALS: BP 148/64
[2017-08-27 15:11] LABS: BASOPHILS 0.2 % (0-2); EOSINOPHILS 1.3 % (0-7); HEMATOCRIT 42.6 % (42.0-54.0); HEMOGLOBIN 14.2 g/dL (13.5-17.5); IMMATURE GRANULOCYTES 0.2 % (0-5); LYMPHOCYTES 10.4 % (15-50); MCH 31.8 pg (26.0-34.0); MCHC 33.3 g/dL (31.0-37.0); MCV 95.3 fL (80.0-100.0); NEUTROPHILS 82.9 % (40-80); RBC 4.47 10x6/uL (4.20-6.10); RDW 15.7 % (11.5-14.5); WBC 12.5 10x3/uL (4.8-10.8)
[2017-08-27 15:13] LABS: PLATELET COUNT 272 10x3/uL (130-400)
[2017-08-27 15:27] LABS: ANION GAP 14.8 mmol/L (8-16); CALCIUM 9.3 mg/dL (8.5-10.1); CARBON DIOXIDE 26.8 mmol/L (21.0-32.0); CREATININE - SERUM 1.7 mg/dL (0.6-1.3); POTASSIUM - SERUM 4.6 mmol/L (3.5-5.1)
[2017-08-27 19:30] VITALS: BP 126/69
[2017-08-28 10:34] VITALS: BP 142/45
[2017-08-28 20:46] VITALS: BP 112/53
[2017-08-29 07:00] VITALS: BP 125/53
[2017-08-29 18:45] VITALS: BP 117/55
[2017-08-30 07:00] VITALS: BP 134/55
[2017-08-30 20:31] VITALS: BP 145/67
[2017-08-31 09:40] VITALS: BP 108/60
[2017-08-31 10:13] VITALS: Ht 180.3 cm; Wt 83.0 kg
[2017-08-31 22:01] VITALS: BP 138/54
[2017-09-01 09:05] VITALS: BP 140/75
[2017-09-01 22:22] LABS: BASOPHILS 0.1 % (0-2); EOSINOPHILS 1.7 % (0-7); HEMATOCRIT 37.2 % (42.0-54.0); HEMOGLOBIN 12.4 g/dL (13.5-17.5); IMMATURE GRANULOCYTES 0.3 % (0-5); LYMPHOCYTES 7.3 % (15-50); MCH 31.6 pg (26.0-34.0); MCHC 33.3 g/dL (31.0-37.0); MCV 94.7 fL (80.0-100.0); MEAN PLATELET VOLUME 11.8 fL (7.4-10.4); MONOCYTES 5.1 % (2-11); NEUTROPHILS 85.5 % (40-80); PLATELET COUNT 250 10x3/uL (130-400); RBC 3.93 10x6/uL (4.20-6.10); RDW 15.6 % (11.5-14.5); WBC 15.6 10x3/uL (4.8-10.8)
[2017-09-02 05:32] LABS: BASOPHILS 0.2 % (0-2); EOSINOPHILS 2.5 % (0-7); HEMATOCRIT 36.2 % (42.0-54.0); IMMATURE GRANULOCYTES 0.2 % (0-5); LYMPHOCYTES 12.4 % (15-50); MCH 31.3 pg (26.0-34.0); MCHC 33.1 g/dL (31.0-37.0); MCV 94.3 fL (80.0-100.0); MEAN PLATELET VOLUME 11.2 fL (7.4-10.4); NEUTROPHILS 79.7 % (40-80); PLATELET COUNT 231 10x3/uL (130-400); RBC 3.84 10x6/uL (4.20-6.10); RDW 15.8 % (11.5-14.5); WBC 12.3 10x3/uL (4.8-10.8)
[2017-09-02 08:06] VITALS: BP 123/51
[2017-09-02 19:19] VITALS: BP 122/60
[2017-09-03 04:41] LABS: ANION GAP 7.9 mmol/L (8-16); CALCIUM 9.2 mg/dL (8.5-10.1); CARBON DIOXIDE 27.9 mmol/L (21.0-32.0); CREATININE - SERUM 1.6 mg/dL (0.6-1.3); POTASSIUM - SERUM 4.8 mmol/L (3.5-5.1)
[2017-09-03 04:46] LABS: APTT 25.9 SECONDS (22.8-39.4); INR 1.23 (0.85-1.17); PROTIME 15.1 SECONDS (11.6-15.0)
[2017-09-03 06:20] LABS: BASOPHILS 0.2 % (0-2); EOSINOPHILS 4.8 % (0-7); HEMATOCRIT 36.8 % (42.0-54.0); HEMOGLOBIN 12.2 g/dL (13.5-17.5); IMMATURE GRANULOCYTES 0.2 % (0-5); LYMPHOCYTES 13.5 % (15-50); MCH 31.9 pg (26.0-34.0); MCHC 33.2 g/dL (31.0-37.0); MEAN PLATELET VOLUME 11.1 fL (7.4-10.4); MONOCYTES 5.2 % (2-11); NEUTROPHILS 76.1 % (40-80); PLATELET COUNT 240 10x3/uL (130-400); RBC 3.82 10x6/uL (4.20-6.10); RDW 15.8 % (11.5-14.5)
[2017-09-03 06:43] LABS: MCV 96.3 fL (80.0-100.0)
[2017-09-03 09:11] VITALS: BP 118/49
[2017-09-03 19:11] VITALS: BP 128/70
[2017-09-04 07:49] VITALS: BP 126/48
[2017-09-04 19:50] VITALS: BP 152/72
[2017-09-05 05:41] LABS: BASOPHILS 0.1 % (0-2); EOSINOPHILS 3.5 % (0-7); HEMATOCRIT 34.8 % (42.0-54.0); HEMOGLOBIN 11.6 g/dL (13.5-17.5); IMMATURE GRANULOCYTES 0.4 % (0-5); LYMPHOCYTES 13.8 % (15-50); MCH 31.2 pg (26.0-34.0); MCHC 33.3 g/dL (31.0-37.0); MEAN PLATELET VOLUME 11.8 fL (7.4-10.4); MONOCYTES 5.5 % (2-11); NEUTROPHILS 76.7 % (40-80); PLATELET COUNT 240 10x3/uL (130-400); RBC 3.72 10x6/uL (4.20-6.10); RDW 15.5 % (11.5-14.5); WBC 11.2 10x3/uL (4.8-10.8)
[2017-09-05 05:43] LABS: MCV 93.5 fL (80.0-100.0)
[2017-09-05 05:53] LABS: ANION GAP 11.1 mmol/L (8-16); CALCIUM 8.8 mg/dL (8.5-10.1); CARBON DIOXIDE 25.2 mmol/L (21.0-32.0); CREATININE - SERUM 1.6 mg/dL (0.6-1.3); POTASSIUM - SERUM 4.3 mmol/L (3.5-5.1)
[2017-09-05 07:00] VITALS: BP 124/53
[2017-09-05 20:16] VITALS: BP 138/60
[2017-09-05 21:58] VITALS: BP 138/60
[2017-09-06 07:23] VITALS: BP 112/56
[2017-09-06 19:43] VITALS: BP 142/82
[2017-09-07 06:28] LABS: BASOPHILS 0.2 % (0-2); HEMATOCRIT 34.2 % (42.0-54.0); HEMOGLOBIN 11.3 g/dL (13.5-17.5); IMMATURE GRANULOCYTES 0.2 % (0-5); LYMPHOCYTES 14.8 % (15-50); MCH 30.8 pg (26.0-34.0); MCV 93.2 fL (80.0-100.0); MEAN PLATELET VOLUME 11.8 fL (7.4-10.4); MONOCYTES 6.4 % (2-11); NEUTROPHILS 74.4 % (40-80); PLATELET COUNT 244 10x3/uL (130-400); RBC 3.67 10x6/uL (4.20-6.10); RDW 15.9 % (11.5-14.5); WBC 9.7 10x3/uL (4.8-10.8)
[2017-09-07 06:58] LABS: ANION GAP 15.1 mmol/L (8-16); CALCIUM 8.4 mg/dL (8.5-10.1); CARBON DIOXIDE 23.2 mmol/L (21.0-32.0); CREATININE - SERUM 1.5 mg/dL (0.6-1.3); POTASSIUM - SERUM 4.3 mmol/L (3.5-5.1)
[2017-09-07 09:33] VITALS: BP 125/56
[2017-09-07] MEDS ORDERED: ARICEPT10 MG PO (14:57)
[2017-09-07] MEDS ORDERED: MACROBID100 MG PO (14:57)
[2017-09-07] MEDS ORDERED: MEGACE40 MG PO (14:57)
[2017-09-07] MEDS ORDERED: PROTONIX40 MG PO (14:58)
[2017-09-07] MEDS ORDERED: DURAGESIC1 PATCH .4 TRANSDERM (14:58)
[2017-09-07] MEDS ORDERED: CARAFATE1 G/10 ML PO (14:59)
[2017-09-07] MEDS ORDERED: VITAMIN D5000 UNIT PO (15:00)
[2017-09-07] MEDS ORDERED: GLUCOPHAGE500 MG PO (15:00)
[2017-09-07] MEDS ORDERED: LANTUS INSULIN10 ML SC (15:00)
[2017-09-07] MEDS ORDERED: THERAGRAN M [BK1 TAB PO (15:00)
[2017-09-07 20:42] VITALS: BP 116/58
[2017-09-08 11:57] VITALS: BP 148/78
== END 2017-09-08 16:00 | DRG 57 ==
LOC: D.PSYCH 17:53
PROVIDERS: Family Medicine; Internal Medicine Gastroenterology; Psychiatry & Neurology Psychiatry
DX: G30.1 Alzheimer's disease with late onset (principal); F02.81 Dementia in other diseases classified elsewhere, unspecified severity, with behavioral disturbance; N39.0 Urinary tract infection, site not specified; K92.2 Gastrointestinal hemorrhage, unspecified; E11.22 Type 2 diabetes mellitus with diabetic chronic kidney disease; I12.9 Hypertensive chronic kidney disease with stage 1 through stage 4 chronic kidney disease, or unspecified chronic kidney disease; N18.9 Chronic kidney disease, unspecified; N40.0 Benign prostatic hyperplasia without lower urinary tract symptoms; J44.9 Chronic obstructive pulmonary disease, unspecified; M10.9 Gout, unspecified; D50.9 Iron deficiency anemia, unspecified; B95.2 Enterococcus as the cause of diseases classified elsewhere; E55.9 Vitamin D deficiency, unspecified; K21.0 Gastro-esophageal reflux disease with esophagitis; Z85.118 Personal history of other malignant neoplasm of bronchus and lung

== ENCOUNTER 2017-10-22 12:41 | Emergency (ER) | payer MEDICARE ==
[~2017-10-22 12:41] MED LIST changes: +ARICEPT10 MG PO; +ATIVAN0.5 MG PO; +CARAFATE1 G/10 ML PO; +CENTRUM SILVER1 TA1; +CENTRUM SILVER1 TA1 PO; +DURAGESIC1 PATCH .4 TRANSDERM; +GLUCOPHAGE500 MG PO; +GUAIFENESI100 MG/5 M PO; +JANUVIA100 MG PO; +LANTUS INSULIN10 ML SC; +MACROBID100 MG PO; +MEGACE40 MG PO; +NOVOLOG100 U/M1 SC; +PROTONIX40 MG PO; +THERAGRAN M [BK1 TAB PO; +TRAMADOL HCL E100 M1 PO; +VITAMIN D5000 UNIT PO
[2017-10-22 12:45] VITALS: Ht 180.3 cm
[2017-10-22 14:56] LABS: BASOPHILS 0.2 % (0-2); EOSINOPHILS 2.8 % (0-7); HEMATOCRIT 34.7 % (42.0-54.0); HEMOGLOBIN 11.4 g/dL (13.5-17.5); IMMATURE GRANULOCYTES 0.2 % (0-5); LYMPHOCYTES 8.6 % (15-50); MCH 31.4 pg (26.0-34.0); MCHC 32.9 g/dL (31.0-37.0); MCV 95.6 fL (80.0-100.0); MEAN PLATELET VOLUME 11.3 fL (7.4-10.4); MONOCYTES 4.4 % (2-11); NEUTROPHILS 83.8 % (40-80); RBC 3.63 10x6/uL (4.20-6.10); RDW 17.3 % (11.5-14.5); WBC 13.1 10x3/uL (4.8-10.8)
[2017-10-22 15:03] LABS: PLATELET COUNT 373 10x3/uL (130-400)
[2017-10-22 15:18] LABS: ALBUMIN 2.5 g/dL (3.4-5.0); ALKALINE PHOSPHATASE 163 U/L (46-116); ALT (SGPT) 24 U/L (10-68); CALC OSMOLALITY 296 mosm/kg (275-300); CALCIUM 9.6 mg/dL (8.5-10.1); CARBON DIOXIDE 24.5 mmol/L (21.0-32.0); CHLORIDE - SERUM 111 mmol/L (98-107); CREATININE - SERUM 1.5 mg/dL (0.6-1.3); GLUCOSE 139 mg/dL (74-106); POTASSIUM - SERUM 4.2 mmol/L (3.5-5.1); PROTEIN - SERUM 8.2 g/dL (6.4-8.2); SODIUM 145 mmol/L (136-145); UREA NITROGEN 30 mg/dL (7-18); eGFR NON AFRICAN AMERICAN 47 mL/min (90-120)
[2017-10-22 15:30] LABS: CKMB 4.5 U/L (0.0-3.6); CREATINE KINASE 317 UL (21-232); TROPONIN-I 0.018 ng/mL (0.000-0.060)
[2017-10-22 15:47] LABS: APTT 25.1 SECONDS (22.8-39.4); INR 1.3 (0.85-1.17); PROTIME 15.7 SECONDS (11.6-15.0)
[2017-10-22 15:48] LABS: D-DIMER-QUANTITATIVE 3.43 ug/mLFEU (0.20-0.54)
[2017-10-22 18:11] LABS: APPEARANCE CLEAR (CLEAR); BILIRUBIN NEGATIVE (NEGATIVE); COLOR DK YELLOW (YELLOW); GLUCOSE NEGATIVE (NEGATIVE); KETONE NEGATIVE (NEGATIVE); NITRITE NEGATIVE (NEGATIVE); PROTEIN 1+ mg/dL (NEGATIVE); UROBILINOGEN NORMAL (NORMAL)
[2017-10-22 20:08] VITALS: BP 132/78
== END 2017-10-22 20:11 ==
LOC: D.ER 12:41
PROVIDERS: Family Medicine
DX: Z03.89 Encounter for observation for other suspected diseases and conditions ruled out (principal); F03.90 Unspecified dementia, unspecified severity, without behavioral disturbance, psychotic disturbance, mood disturbance, and anxiety; E11.9 Type 2 diabetes mellitus without complications; I10 Essential (primary) hypertension; J44.9 Chronic obstructive pulmonary disease, unspecified